=== PATIENT | male | born 1960 | race Hispanic/Latino ===

== ENCOUNTER → 2017-12-19 12:39 | Outpatient (CLI) | payer MEDICAID, SELFPAY ==
--- NOTE | 2017-12-19 12:41 | RAD_ITS ---
STUDY: X-RAY - RIGHT KNEE REASON FOR EXAM: Male, 57 years old. Postop TECHNIQUE: 4 view(s) of the knee. COMPARISON: None. FINDINGS: Total knee arthroplasty. Normal visualized proximal tibia and fibula. Normal proximal tibiofibular articulation. Normal medial femorotibial compartment. Normal lateral femorotibial compartment. Normal patellofemoral articulation. Swelling overlying the knee. RAD/Knee 4 or More Views IMPRESSION: Successful postoperative total knee arthropathy Electronically Signed: Warren Lozano MD at 19:00 EST , Service support ,
== END ==
PROVIDERS: Family Provider Family Medicine; PCP Family Medicine; Visit Provider Orthopaedic Surgery
DX: M25.561 Pain in right knee (principal)
CPT/HCPCS: 73564

== ENCOUNTER 2018-03-03 01:01 | Inpatient (IN) | payer MEDICAID, SELFPAY ==
[2018-03-03] VITALS (16 sets, daily range): BP systolic 92–150; BP diastolic 7–97; PULSE 75–115; RESP 15–20; TEMP 36.7–38.8; O2SAT 93–96; BMI 38.6; BMI 38.5
--- NOTE | 2018-03-03 01:06 | EKG12_ITS ---
Test Reason : PRE-OP KNEE Blood Pressure : / mmHG Vent. Rate : 088 BPM Atrial Rate : 088 BPM P-R Int : 142 ms QRS Dur : 090 ms QT Int : 356 ms P-R-T Axes : 040 012 089 degrees QTc Int : 430 ms Normal sinus rhythm Low voltage QRS (LIMB LEADS) Nonspecific ST and T wave abnormality Abnormal ECG Confirmed by TOMMIE PERALTA ([id number]), photographic editor ERWIN POND ([id number]) on 03/04/2018 9:38:14 AM Referred By: DR MARIO Confirmed By:TOMMIE PERALTA
--- NOTE | 2018-03-03 01:06 | RAD_ITS ---
STUDY: X-RAY CHEST REASON FOR EXAM: Male, 57 years old. Fever. Right knee pain. TECHNIQUE: Single AP portable view of the chest. COMPARISON: None. FINDINGS: The lungs are mildly underexpanded. There is no demonstrated pulmonary infiltrate. There is no demonstrated pleural abnormality. Normal size heart. Normal mediastinum and fr[place]. Normal visualized pulmonary arteries. Normal visualized aortic arch and descending thoracic aorta. There are diffuse degenerative changes of the visualized thoracic spine. Normal visualized ribs, clavicles, and shoulders. There is no demonstrated abnormality of the visualized soft tissue structures of the upper abdomen. RAD/Chest 1 View (Portable) IMPRESSION: No evidence for acute cardiopulmonary pathology. Electronically Signed: Carlos Romano MD at 2:17 EDT , Service support ,
--- NOTE | 2018-03-03 01:09 | ED.DCSUM_ITS ---
- ER Visit Summary Date of Service: 03/03/18 Chief Complaint: Fever, knee pain History of Present Illness: The patient is a 57 M presents to the emergency department with fever and knee pain. Patient had a right total knee replacement done by Dr. Andersen just about a year ago. He is currently in a long term. Over the past 2 days, he has had gradually increasing pain in his right knee. He has had pain with ambulation. Today, he began to have a fever and difficulty bearing weight because of pain. The patient was actually sent to [facility]. There, he had a significant leukocytosis of 22,000, but they were unable to do any intervention for the knee. He was discussed with Dr. Andersen and sent her to the emergency department for further evaluation. Patient does describe some mild pain in the knee. He denies any cough or shortness of breath. Physical Examination: Vital signs reviewed General: Well-nourished, well-developed Head: Normocephalic, atraumatic Eyes: Pupils equal and reactive, extraocular muscles intact Neck, supple, no lymphadenopathy Heart: Regular rate and rhythm Respiratory: No distress, clear bilaterally Abdomen: Soft, nontender, nondistended, no peritoneal signs Back: Nontender Extremities: Small effusion of the right knee with tenderness. Some pain with smaller range of motion. No significant erythema. Skin: Normal color no rash Neuro: Alert and oriented, no focal or lateralizing deficits Test Results: [] Emergency Department Course and Treatment: I did discuss the patient with Dr. Andersen on patient's arrival. He was agreeable with plan for arthrocentesis. The patient was consented for arthrocentesis. I did take great care maintaining sterile technique. The knee was prepped with Shur-Clens multiple times. 2 cc of lidocaine was injected in the subcutaneous tissue. The knee was reprepped. Under sterile technique, 50 cc of fluid was aspirated from the medial aspect of the joint. There was some scant purulence. There was no blood. It was sent to the laboratory for evaluation. There are 30,000 white blood cells. Gram stain is pending. His x-ray does not show focal infiltrate. With the patient' s nonnative knee, significant infusion, evidence of increased leukocytosis, and fever the patient will be admitted. Dr. Andersen did want to wait on IV antibiotics until the morning. The patient is not hypotensive. I do feel that this is a reasonable plan. He is discussed with the hospitalist will be admitted. Treatment Plan: [] Disposition: Admission Impression: 1. Septic arthritis right knee This note was generated with [employer] dictation software. It may contain incorrect words, spelling, and punctuation that were not noted in review of the chart prior to signing ED Disposition - Plan for ED Patient: Chief Complaint: Lower Extremity Injury Referrals: Jan Newman DO [STAFF PHYSICIAN] -
[2018-03-03] MEDS: Acetaminophen 500 MG Tablet 1000 MG PO ×2 (01:19→22:18)
[2018-03-03] MEDS: 0.9% Normal Saline 1,000 ML 1000 ML IV (01:19)
[2018-03-03] MEDS: Morphine 4 MG/ML Syringe IV (01:28)
[2018-03-03] MEDS: Ondansetron 4 MG/2 ML Vial IV (01:28)
[2018-03-03 01:43] LABS: Absolute Lymphocyte Count 1.23 X10^3/ul (0.83-4.51); Absolute Neutrophil Count 19.2 X10^3/uL (2.0-7.7); Basophil# 0.02 X10^3/uL; Basophil% 0.1 % (0-1); Differential Indicated SCAN CRITERIA MET; Hematocrit 42.7 % (40-54); Hemoglobin 14.2 g/dl (13.0-16.5); Lymphocyte # 1.23 X10^3/ul (4.0); Lymphocyte % 5.5 % (19-41); Mean Corp Hgb Conc 33.3 g/gl (32-36); Mean Corpuscular Hgb 27.5 pg (27.0-32.0); Mean Corpuscular Volume 82.8 fL (80-94); Mean Platelet Vol. 11.2 fl (6.2-12.0); Monocyte# 1.93 X10^3/uL; Monocyte% 8.6 % (0-10); Neutrophil # 19.22 X10^3/uL (2.7-7.7); Neutrophil % 85.6 % (47-70); POSITIVE COUNT NO; POSITIVE DIFFERENTIAL YES; POSITIVE MORPHOLOGY NO; Platelet Count 194 K/mm3 (150-450); RBC Distribution Width CV 15.7 % (11.6-14.6); RBC Distribution Width SD 47.4 fl (35.1-43.9); Red Blood Count 5.16 M/mm3 (4.6-6.2); White Blood Count 22.4 K/mm3 (4.4-11.0)
[2018-03-03 01:46] LABS: Pathologist Comment May follow
[2018-03-03 01:54] LABS: AUTO B FLUID DILUENT BKGD CT WBC <0.1 RBC <0.01 (W<.1,R<.01)
[2018-03-03 01:55] LABS: Color / Synovial Fluid Yellow (Pale Yellow); Source / Synovial Fluid RT KNEE; Source- Body Fluid SYNOVIAL; Viscosity / Synovial Fluid Sl. Viscous (HIGH)
[2018-03-03 01:56] LABS: ALB/GLOB Ratio 0.8 RATIO (0.9-2.4); AST(SGOT) 23 U/L (15-37); Alanine Aminotransfer ALT/SGPT 57 U/L (16-61); Albumin, Serum 3.2 g/dL (3.2-5.0); Alkaline Phosphatase 122 U/L (45-117); Anion Gap 8 (5-15); BUN 16 mg/dL (7-18); Calcium,Total 8.6 mg/dL (8.5-10.1); Chloride 99 mmol/L (98-107); EST Glomerular Filtration Rate 81 mL/min (>60); Est Glom Filt Rate - Afr Amer 99 mL/min (>60); Estimated Creatinine Clearance 67.42 ml/min; Glucose 127 mg/dL (74-106); Potassium 3.3 mmol/L (3.5-5.1); Protein, Total 7.2 g/dL (6.4-8.2); Sodium Level 136 mmol/L (136-145)
[2018-03-03 01:56] LABS: Appearance /Synovial Fluid Hazy (CLEAR)
[2018-03-03 02:16] LABS: RBC /Synovial Fluid 0.007 10^6/uL (0); Synovial Fld Mononuclear WBC % 12.2 %; Synovial Fld Polynuclear WBC # 26.027 10^3/ul; Synovial Fld Polynuclear WBC % 87.8 %
[2018-03-03 02:30] LABS: Differential Comment SCANNED
[2018-03-03] MEDS: HYDROmorphone 1 MG/ML Syringe IV (02:47)
--- NOTE | 2018-03-03 03:17 | PCM.HP.STD ---
Problem List (1) Infection of right knee Status: Acute (2) Osteoarthritis Status: Chronic Qualifiers: (3) Status post total left knee replacement Status: Chronic (4) Depression Status: Chronic Qualifiers: (5) Memory deficit Status: Chronic (6) COPD (chronic obstructive pulmonary disease) Status: Chronic Qualifiers: (7) HLD (hyperlipidemia) Status: Chronic Qualifiers: (8) HTN (hypertension) Status: Chronic Qualifiers: (9) History of stroke Status: Chronic History of Present Illness Date of Admission: 03/03/18 Chief Complaint: right knee infection and pain The patient is a 57 year old male patient who has pain in his right knee. He had a knee replacement on that side one year ago. He currently resides in a fdc. It was noted after two days of worsening ambulation that the patient had pain in that knee. He went to [facility] ER but was transferred to our facility as they were unable to perform a cell count on the joint aspirate. White count elevated to 22,000. Per Dr Andersen order the patient is to be admitted and he will be consulted and antibiotics can be decided on in the am. No shortness of breath or cough. Past Medical History Past Medical History (Chronic Problems): Chronic Problems (Last Reviewed 12/19/17 @ 12:40 by Liza Rico) Osteoarthritis (Chronic) Status post total left knee replacement (Chronic) Depression (Chronic) Memory deficit (Chronic) COPD (chronic obstructive pulmonary disease) (Chronic) HLD (hyperlipidemia) (Chronic) HTN (hypertension) (Chronic) History of stroke (Chronic) Allergies No Known Allergies Allergy (Verified 12/19/17 12:40) Home Medications: Ambulatory Orders Medication Instructions Recorded Amlodipine Besylate [Norvasc] 10 mg PO DAILY #30 tab 03/19/17 Hydrochlorothiazide [Hctz] 25 mg PO DAILY #30 tab 03/19/17 Rivastigmine Tartrate [Exelon] 3 mg PO BID #60 cap 03/19/17 busPIRone [Buspar] 5 mg PO BID #60 tab 03/19/17 Atorvastatin Calcium [Lipitor] 40 mg PO DAILY 06/18/17 Duloxetine Hcl [Cymbalta] 120 mg PO DAILY 06/18/17 Lisinopril [Zestril] 2.5 mg PO BID 06/18/17 Surgical History: no surgical history Smoking Status: Former smoker - *Family History Maternal History Items: No pertinent history Review of Systems Constitutional: Denies: Chills, Fever, Weight Change HEENT: Denies: Head Aches, Sinus Congestion, Sinus Drainage Cardiovascular: Denies: Chest Pain, Palpitations Respiratory: Denies: Cough, Shortness of breath at rest, Sputum production Gastrointestinal: Denies: Abdominal Pain, Nausea, Vomiting Genitourinary: Denies: Dysuria Musculoskeletal: Reports: Joint Pain - right knee, Joint Tenderness Skin: Denies: Rash, Wounds Neurological: Reports: Confusion. Denies: Focal weakness, Numbness, Tingling Psychiatric: Denies: Anxiety, Depression, Homicidal Ideations, Suicidal Ideations Hematologic/ Lymphatic: Denies: Easy Bruising, Easy Bleeding VTE Information - Inpt Only VTE Present on Admission: No VTE Mechan Device Prophylaxis: None VTE Pharm Prophylaxis ordered?: Yes Patient Problems: Active and Suspected Problems (Last Reviewed 12/19/17 @ 12:40 by Liza Rico) Infection of right knee (Acute) - Physical Exam General: Alert, Oriented x3, Cooperative HEENT: Atraumatic, Normocephalic Neck: Supple Lungs: Clear to auscultation, Normal air movement Cardiovascular: Regular rate, Normal S1, Normal S2, No murmurs Abdomen: Bowel Sounds Present, Soft, Non Tender Extremities: No edema, Capillary Refill Less than 3 Seconds, Tenderness - right knee Skin: No rashes, No breakdown Musculoskeletal: No Tenderness to Palpation of Joints or Extremities Neurological: Neuro grossly intact Psych/Mental Status: Normal Affect, Appropriate Vital Signs Temp Pulse Resp BP Pulse Ox 99.4 F H 85 17 124/7 H 94 03/03/18 02:53 03/03/18 02:53 03/03/18 02:53 03/03/18 02:53 03/03/18 02:53 Oxygen Flow Rate (L/min) 2 Oxygen Delivery Method Nasal Cannula Weight: 224 lb 13.944 oz Body Mass Index (BMI) 38.6 Microbiology Past 72 Hours 03/03/18 01:40 Gram Stain - Preliminary Fluid - Synovial (joint) Laboratory Tests Past 24 Hrs 03/03/18 03/03/18 03/03/18 01:25 01:25 01:40 WBC 22.4 H RBC 5.16 Hgb 14.2 Hct 42.7 MCV 82.8 MCH 27.5 MCHC 33.3 RDW 15.7 H RDW Differential 47.4 H Plt Count 194 MPV 11.2 Immature Gran % (Auto) 0.200 Neut % (Auto) 85.6 H Lymph % (Auto) 5.5 L [place] % (Auto) 8.6 Eos % (Auto) 0.0 Baso % (Auto) 0.1 Absolute Neuts (auto) 19.2 H Absolute Lymphs (auto) 1.23 Total Counted Not Reportable Differential Comment SCANNED Diff Path Review March Sodium 136 Potassium 3.3 L Chloride 99 Carbon Dioxide 29.0 Anion Gap 8 BUN 16 Creatinine 1.00 Estim Creat Clear Calc 67.42 Est GFR (MDRD) Af Amer 99 Est GFR (MDRD) Non-Af 81 BUN/Creatinine Ratio 16.0 Glucose 127 H Lactic Acid Calcium 8.6 Total Bilirubin 0.50 AST 23 ALT 57 Alkaline Phosphatase 122 H Total Protein 7.2 Albumin 3.2 Globulin 4.0 Albumin/Globulin Ratio 0.8 L Fluid Crystals Pending Fluid Crystal Source Pending Synovial Source Pending Synovial Color Pending Synovial Appearance Pending Synovial WBC 30.2760 H Synovial RBC 0.007 H Synovial Tot Cell Ct 30.3040 H Synov Polynuclear WBCs 26.027 Synovial Polynuclear % 87.8 Synovial Mononuclear % 12.2 [address]ovial [address] Comment Pending 03/03/18 02:15 WBC RBC Hgb Hct MCV MCH MCHC RDW RDW Differential Plt Count MPV Immature Gran % (Auto) Neut % (Auto) Lymph % (Auto) [place] % (Auto) Eos % (Auto) Baso % (Auto) Absolute Neuts (auto) Absolute Lymphs (auto) Total Counted Differential Comment Diff Path Review Sodium Potassium Chloride Carbon Dioxide Anion Gap BUN Creatinine Estim Creat Clear Calc Est GFR (MDRD) Af Amer Est GFR (MDRD) Non-Af BUN/Creatinine Ratio Glucose Lactic Acid 1.0 Calcium Total Bilirubin AST ALT Alkaline Phosphatase Total Protein Albumin Globulin Albumin/Globulin Ratio Fluid Crystals Fluid Crystal Source Synovial Source Synovial Color Synovial Appearance Synovial WBC Synovial RBC Synovial Tot Cell Ct Synov Polynuclear WBCs Synovial Polynuclear % Synovial Mononuclear % Synovial Path Comment Assessment/Plan Active and Suspected Problems (Last Reviewed 12/19/17 @ 12:40 by Liza Rico) Infection of right knee (Acute) Chronic Problems (Last Reviewed 12/19/17 @ 12:40 by Liza Rico) Osteoarthritis (Chronic) Depression (Chronic) Memory deficit (Chronic) COPD (chronic obstructive pulmonary disease) (Chronic) HLD (hyperlipidemia) (Chronic) HTN (hypertension) (Chronic) History of stroke (Chronic) Plan - admit to medical surgical floor - consult Dr. Andersen who will initiate antibiotic therapy - continue routine medications - LMWH for DVT prophylaxis - morphine 2mg IV q 2 hrs prn pain Code Visit Inpatient E&M: 12578 Init Hosp L2
[2018-03-03 03:25] LABS: Lymph 1 %; Monocyte /Synovial Fluid 7 %; Neutrophil 92 % (0-25)
[2018-03-03 03:27] LABS: Body Fluid QC Type(s) BF1Q,BF2Q
[2018-03-03] MEDS: Morphine 4 MG/ML Syringe 2 MG IV ×4 (04:55→15:00)
[2018-03-03] MEDS: 0.9% Normal Saline 1,000 ML 125 ML IV (06:33)
[2018-03-03 07:32] LABS: Erythrocyte Sedimentation Rate 37 mm/hr (0-20)
--- NOTE | 2018-03-03 09:25 | CASEMGMT ---
Addendum entered by Callie Agrawal 03/03/18 11:30: ELMER received call from Frances at [facility] stating that pt will need pre-cert to return to [facility] under skilled. ELMER will fax updated clinicals to Frances when available. Pt is scheduled to have surgery today. Original Note: Social Work Note SW met with pt as pt is from [facility]. Pt states that his plan is to return there at discharge. ELMER placed a call to [facility] and spoke with Ariela who states admissions is still in morning meeting. ELMER left message for Ariela stating that pt is in hospital and his plan is to return and to let this worker know if pt will need pre-cert to return to [facility]. ELMER will wait for call back from [facility]. ELMER will continue to follow to assist with discharge planning. Plan: Return to [facility] at discharge Callie Agrawal DISTRICT COMMERCIAL SUPERINTENDENT, ASSISTIVE TECHNOLOGY TRAINER
--- NOTE | 2018-03-03 09:26 | PCM.PN.HOSP ---
Patient Problems: Active and Suspected Problems (Last Reviewed 12/19/17 @ 12:40 by Liza Rico) Infection of right knee (Acute) Subjective: still with pain in right knee. had a replacement several years ago on that side. Vitals/I&O's: Vital Signs Temp Pulse Resp BP Pulse Ox 36.7 C 75 20 H 109/68 96 03/03/18 08:04 03/03/18 08:04 03/03/18 08:04 03/03/18 08:04 03/03/18 08:04 Oxygen Flow Rate (L/min) 3 Oxygen Delivery Method Nasal Cannula Weight: 101.7 kg Body Mass Index (BMI) 38.5 Intake and Output for Last 24 Hours 03/01/18 03/02/18 03/03/18 23:59 23:59 23:59 Intake Total 100 / 100 Balance 100 / 100 General: Alert, Cooperative, No apparent distress HEENT: Atraumatic, Normocephalic Neck: No Nodes, Thyroid Normal Size and Texture Lungs: Clear to auscultation, Normal air movement, No rhonchi, No wheeze Cardiovascular: Regular rate, Regular Rhythm, Normal S1, Normal S2, No murmurs Abdomen: Bowel Sounds Present, Soft, Non Tender, Non-Distended, No Hepato-splenomegaly Extremities: - - right knee effusion with slight warmth. TTP w minor palpation. Skin: No rashes, No breakdown Psych/Mental Status: Normal Affect, Appropriate Current Medications Amlodipine Besylate (Norvasc) 10 mg PO DAILY [facility] Atorvastatin Calcium (Lipitor) 40 mg PO QHS ON LICENSE OF [facility] Buspirone HCl (Buspar) 5 mg PO BID [facility] Duloxetine HCl (Cymbalta) 120 mg PO DAILY [facility] Enoxaparin Sodium (Lovenox) 40 mg SC DAILY@1000 ON LICENSE OF [facility] Last Admin: 03/03/18 07:59 Dose: Not Given Gabapentin (Neurontin) 100 mg PO DAILYCM ON LICENSE OF [facility] Lisinopril (Zestril) 2.5 mg PO BID [facility] Magnesium Hydroxide (Milk Of Magnesia) 30 ml PO DAILY PRN PRN PRN Reason: Constipation Morphine Sulfate () 2 mg IV Q2H PRN PRN PRN Reason: SEVERE PAIN (6-10/10) Last Admin: 03/03/18 04:55 Dose: 2 mg Rivastigmine Tartrate (Exelon) 3 mg PO BID [facility] Sodium Chloride () 5 - 30 ml IV UD PRN PRN Reason: SALINE FLUSH Medical Necessity - Tobacco Use Smoking Status: Former smoker Assessment/Plan Active and Suspected Problems (Last Reviewed 12/19/17 @ 12:40 by Liza Rico) Infection of right knee (Acute) 1. right septic knee Gram stain unremarkable. Culture pending. To OR today with Dr. Cleary. Hold on abx per ortho until cultures results come back consult ID for long-term recs 2. hypokalemia replace K follow up magnesium level 3. DVT proph: LMWH (on hold for surgery today) Code Visit Procedures: Other Procedure - See Report - non-billable rounding.
--- NOTE | 2018-03-03 09:35 | PN_ITS ---
Patient Problems: Active and Suspected Problems (Last Reviewed 12/19/17 @ 12:40 by Liza Rico) Infection of right knee (Acute) Subjective: still with pain in right knee. had a replacement several years ago on that side. Vitals/I&O's: Vital Signs Temp Pulse Resp BP Pulse Ox 36.7 C 75 20 H 109/68 96 03/03/18 08:04 03/03/18 08:04 03/03/18 08:04 03/03/18 08:04 03/03/18 08:04 Oxygen Flow Rate (L/min) 3 Oxygen Delivery Method Nasal Cannula Weight: 101.7 kg Body Mass Index (BMI) 38.5 Intake and Output for Last 24 Hours 03/01/18 03/02/18 03/03/18 23:59 23:59 23:59 Intake Total 100 / 100 Balance 100 / 100 General: Alert, Cooperative, No apparent distress HEENT: Atraumatic, Normocephalic Neck: No Nodes, Thyroid Normal Size and Texture Lungs: Clear to auscultation, Normal air movement, No rhonchi, No wheeze Cardiovascular: Regular rate, Regular Rhythm, Normal S1, Normal S2, No murmurs Abdomen: Bowel Sounds Present, Soft, Non Tender, Non-Distended, No Hepato- splenomegaly Extremities: - - right knee effusion with slight warmth. TTP w minor palpation. Skin: No rashes, No breakdown Psych/Mental Status: Normal Affect, Appropriate Current Medications Amlodipine Besylate (Norvasc) 10 mg PO DAILY [facility] Atorvastatin Calcium (Lipitor) 40 mg PO QHS [facility] Buspirone HCl (Buspar) 5 mg PO BID [facility] Duloxetine HCl (Cymbalta) 120 mg PO DAILY [facility] Enoxaparin Sodium (Lovenox) 40 mg SC DAILY@1000 [facility] Last Admin: 03/03/18 07:59 Dose: Not Given Gabapentin (Neurontin) 100 mg PO DAILYCM [facility] Lisinopril (Zestril) 2.5 mg PO BID [facility] Magnesium Hydroxide (Milk Of Magnesia) 30 ml PO DAILY PRN PRN PRN Reason: Constipation Morphine Sulfate () 2 mg IV Q2H PRN PRN PRN Reason: SEVERE PAIN (6-10/10) Last Admin: 03/03/18 04:55 Dose: 2 mg Rivastigmine Tartrate (Exelon) 3 mg PO BID [facility] Sodium Chloride () 5 - 30 ml IV UD PRN PRN Reason: SALINE FLUSH Medical Necessity - Tobacco Use Smoking Status: Former smoker Assessment/Plan Active and Suspected Problems (Last Reviewed 12/19/17 @ 12:40 by Liza Rico) Infection of right knee (Acute) 1. right septic knee * Gram stain unremarkable. Culture pending. * To OR today with Dr. Cleary. Hold on abx per ortho until cultures results come back * consult ID for long-term recs 2. hypokalemia * replace K * follow up magnesium level 3. DVT proph: LMWH (on hold for surgery today) Code Visit Procedures: Other Procedure - See Report - non-billable rounding.
--- NOTE | 2018-03-03 10:51 | PCM.HP.ID ---
Problem List (1) Infection of right knee Status: Acute Reason for Consult: PJI Consulted by: Dr. Pratt History of Present Illness: The patient is a 57 year old M with h/o R knee replacement 06/2017 who presented to [facility] ED yesterday from [facility] with 2 day h/o moderate R knee pain, swelling, warmth. Mild associated fever. No recent trauma to the knee, no recent abx. After surgery, knee healed well with no complications. Pain worse now with movement. In [facility], no cxs sent. Transferred here and aspiration done. Plan is for surgery today, abx have been held. Full ROS performed and neg except as noted above. - Medical History Past Medical History (Chronic Problems): Chronic Problems (Last Reviewed 12/19/17 @ 12:40 by Liza Rico) Osteoarthritis (Chronic) Status post total left knee replacement (Chronic) Depression (Chronic) Memory deficit (Chronic) COPD (chronic obstructive pulmonary disease) (Chronic) HLD (hyperlipidemia) (Chronic) HTN (hypertension) (Chronic) History of stroke (Chronic) Allergies/Adverse Reactions: Allergies No Known Allergies Allergy (Verified 12/19/17 12:40) Home Medications: Ambulatory Orders Medication Instructions Recorded Amlodipine Besylate [Norvasc] 10 mg PO DAILY #30 tab 03/19/17 Atorvastatin Calcium [Lipitor] 40 mg PO DAILY 06/18/17 Duloxetine Hcl [Cymbalta] 120 mg PO DAILY 06/18/17 Lisinopril [Zestril] 5 mg PO BID 06/18/17 Diazepam [Valium] 5 mg PO DAILY 03/03/18 Fish Oil/Dha/Epa [Fish Oil 1,200 1 each PO DAILY 03/03/18 mg Fish Oil] Furosemide [Lasix] 60 mg PO DAILY 03/03/18 Gabapentin [Neurontin] 100 mg PO BID 03/03/18 Oxycodone [Oxyir] 10 mg PO BID 03/03/18 Rivastigmine Tartrate 3 mg PO BID 03/03/18 [Rivastigmine] Senna [Senokot] 8.6 mg PO QHS 03/03/18 Vitamin B Complex 1 capsule PO DAILY 03/03/18 busPIRone [Buspar] 2.5 mg PO BID 03/03/18 - Social History SMOKING STATUS:: Former smoker Vital Signs Temp Pulse Resp BP Pulse Ox 98.9 F 83 20 H 113/70 94 03/03/18 10:17 03/03/18 10:17 03/03/18 10:17 03/03/18 10:17 03/03/18 10:17 Oxygen Flow Rate (L/min) 2 Oxygen Delivery Method Nasal Cannula Weight: 101.7 kg Body Mass Index (BMI) 38.5 - Other Studies Radiology: [] reviewed Other Studies: [] Route of nutrition/ use of supplements: [] Nutritional Intake: [] IV Site: [] Guidry Catheter: [] - Physical Exam General: Alert, Oriented x3, Cooperative, No apparent distress HEENT: Atraumatic, PERRLA, EOMI Neck: Supple, No Nodes Lungs: Clear to auscultation, Normal air movement Cardiovascular: Regular rate, Regular Rhythm, No murmurs Abdomen: Bowel Sounds Present, Soft, Non Tender, Non-Distended Extremities: No cyanosis Skin: No rashes IV Site: Peripheral, without redness Musculoskeletal: - - R knee pain, swelling, redness, and warmth Neurological: Cranial nerves II-XII grossly intact - Assessment/Plan Antibiotics: [] Assessment/Plan: [] Active and Suspected Problems (Last Reviewed 12/19/17 @ 12:40 by Liza Rico) Infection of right knee (Acute) Sepsis (fever, leukocytosis) due to R knee PJI - knee aspirate with 30k wbc with 92% neutrophils. OR planned for today. Abx being held. Bcx pending. No organisms seen on gram stain. Once he goes to OR, plan will be for empiric iv vanc and ceftriaxone. Thank you, will follow, d/w Dr. Pratt.
--- NOTE | 2018-03-03 11:13 | PCM.CONS.B ---
- Consult Date of Consult: 03/03/18 - Reason for Consult 57-year-old male well-known to me having had undergone bilateral total knee arthroplasties within the last year. Patient reports 48 hours ago to start to develop right knee swelling and increasing pain. The right knee had been done roughly 1 year ago at this point time. Patient says prior to the last 48 hours he had been doing very well have been pleased with his overall outcomes and was doing well. Patient denies any other fevers chills nausea vomiting chest pain or shortness of breath at this point. He denied any other associated urinary issues denied any upper respiratory or abdominal issues at this point. Patient had undergone a needle aspiration that showed him to have a 30,000 white count and also showed on his blood smear to have a 22,000 white count with a shift. Patient had low-grade fevers and was admitted by the hospitalist team. I was called last p.m. by the [place] emergency room about their inability to manage the patient and he was transferred here. I subsequently contacted Dr. Cleary with [facility] about the patient and the probable need for poly-exchange versus revision arthroplasty. No other issues at this point time. Patient has been maintained on n.p.o. status and we had not started any antibiotic coverage at this point to get deep cultures within the wound. This was per the recommendation of Dr. Cleary. Objective: Patient is otherwise alert and oriented ?3 in no acute distress. Appropriate eye contact and affect. Remains otherwise intact from L1-S1 distributions. He has +2 pulses. His left knee examination shows no signs of effusion he has 0-120? of knee flexion remains ligamentously stable with no calf pain negative Homans and no adenopathy. His right knee examination shows swelling to the knee no anaya erythema could be appreciated. No obvious popliteal masses or calf pain. His range of motion is guarded secondary to knee pain. He can perform straight leg raise however but is painful. He has no groin adenopathy or streaking erythema. Lab values reviewed-patient shows 22,000 white count on his blood and shows a 30,000+ knee aspirate white blood cells with increased PMNs. Patient currently has a negative Gram stain for his aspirate and we are waiting for culture formation at this time. Assessment: Right knee periprosthetic infection. Plan: At this point time I will consult Dr. Cleary was that with the [facility] in order to evaluate for incision and drainage poly-exchange and probable antibiotic spacer. I will defer to his expertise in terms of anaya explantation of implants to perform either single or two-stage revision procedure. Infectious disease has been consulted this time. We are holding off on antibiotic coverage until the intraoperative cultures are taken. Patient is n.p.o. I will place to consent to the chart with the understanding that Dr. Cleary will be the lead surgeon. If there is any major issues please contact me. I will continue to follow secondarily. I discussed with the patient the surgical procedure. Patient understands risks and benefits to include damage to nerves muscles arteries and veins development of DVT PE infection or . Patient is aware that he will need probable two-stage procedure. He is aware that he will need a PICC line. Patient is aware of his postoperative plan to include working on aggressive range of motion. Patient is aware that with infection as he was consulted in the preoperative state prior to his primary procedure that there is the risk of amputation as well. For now will proceed with surgical intervention per the treatment plan of Dr. Cleary any major issues please contact me.
--- NOTE | 2018-03-03 11:17 | CON.PCM_ITS ---
- Consult Date of Consult: 03/03/18 - Reason for Consult 57-year-old male well-known to me having had undergone bilateral total knee arthroplasties within the last year. Patient reports 48 hours ago to start to develop right knee swelling and increasing pain. The right knee had been done roughly 1 year ago at this point time. Patient says prior to the last 48 hours he had been doing very well have been pleased with his overall outcomes and was doing well. Patient denies any other fevers chills nausea vomiting chest pain or shortness of breath at this point. He denied any other associated urinary issues denied any upper respiratory or abdominal issues at this point. Patient had undergone a needle aspiration that showed him to have a 30,000 white count and also showed on his blood smear to have a 22,000 white count with a shift. Patient had low-grade fevers and was admitted by the hospitalist team. I was called last p.m. by the [facility] emergency room about their inability to manage the patient and he was transferred here. I subsequently contacted Dr. Cleary with [facility] about the patient and the probable need for poly -exchange versus revision arthroplasty. No other issues at this point time. Patient has been maintained on n.p.o. status and we had not started any antibiotic coverage at this point to get deep cultures within the wound. This was per the recommendation of Dr. Cleary. Objective: Patient is otherwise alert and oriented ?3 in no acute distress. Appropriate eye contact and affect. Remains otherwise intact from L1-S1 distributions. He has +2 pulses. His left knee examination shows no signs of effusion he has 0-120? of knee flexion remains ligamentously stable with no calf pain negative Homans and no adenopathy. His right knee examination shows swelling to the knee no anaya erythema could be appreciated. No obvious popliteal masses or calf pain. His range of motion is guarded secondary to knee pain. He can perform straight leg raise however but is painful. He has no groin adenopathy or streaking erythema. Lab values reviewed-patient shows 22,000 white count on his blood and shows a 30 ,000+ knee aspirate white blood cells with increased PMNs. Patient currently has a negative Gram stain for his aspirate and we are waiting for culture formation at this time. Assessment: Right knee periprosthetic infection. Plan: At this point time I will consult Dr. Cleary was that with the [facility] in order to evaluate for incision and drainage poly-exchange and probable antibiotic spacer. I will defer to his expertise in terms of anaya explantation of implants to perform either single or two-stage revision procedure. Infectious disease has been consulted this time. We are holding off on antibiotic coverage until the intraoperative cultures are taken. Patient is n.p.o. I will place to consent to the chart with the understanding that Dr. Cleary will be the lead surgeon. If there is any major issues please contact me. I will continue to follow secondarily. I discussed with the patient the surgical procedure. Patient understands risks and benefits to include damage to nerves muscles arteries and veins development of DVT PE infection or . Patient is aware that he will need probable two- stage procedure. He is aware that he will need a PICC line. Patient is aware of his postoperative plan to include working on aggressive range of motion. Patient is aware that with infection as he was consulted in the preoperative state prior to his primary procedure that there is the risk of amputation as well. For now will proceed with surgical intervention per the treatment plan of Dr. Cleary any major issues please contact me.
[2018-03-03 14:29] LABS: Pathologist Review Reviewed
[2018-03-03 14:32] LABS: Pathologist Review Reviewed
[2018-03-03 16:19] LABS: Bacteria 0 SEEN /hpf (None Seen); Mucous, Urine 0 SEEN /hpf (<or=2+); Red Blood Cells-Urine 0 SEEN /hpf (0-5); Squamous Epithelial Cells - UA 0 SEEN /hpf (0-5); White Blood Cells 0 SEEN /hpf (0-5)
[2018-03-03 16:22] LABS: Color, Urine Yellow (Yellow); Glucose, Dipstick Normal (Normal); Ketone-Dipstick 5 mg/dl (Negative); Leukocyte Esterase-Dipstick Negative /ul (Negative); Nitrite-Dipstick Negative (Negative); Occult Blood-Urine Negative /ul (Negative); Protein-Dipstick 15 mg/dl (Negative); Urine Bilirubin Dipstick Negative (Negative); Urine Clarity Clear (Clear); Urine Urobilinogen 4 mg/dl (Normal)
--- NOTE | 2018-03-03 17:10 | PCM.CONS.GEN ---
Reason for Consult Date of Consultation: 03/03/18 Reason for Consultation: acute R TKA infection History of Present Illness: The patient is a 57 year old M history of CVAs with resultant dementia. Patient resides in a group home. He had bilateral total knee replacements done in a staged fashion 1 year ago. Most recent follow-up was in December 2017 seem to be doing well at that time. Patient presented to an outside emergency department with 48 hours of pain and swelling in his right knee with erythema. He was reported to have an elevated white blood cell count. He was transferred to the [facility] because his primary surgeon was at this facility. Patient has not been febrile until this evening prior to my meeting him. He does have some noted fevers over the last couple hours. He has pain and difficulty with range of motion severe swelling of the right knee. Left knee does not seem to have significant problems. He did not have significant problems after surgery. Aspiration was performed showing 30,000 white cells 88% neutrophils. ESR and CRP are elevated CRP is 189 ESR is 37. Fluid appearance was hazy consistent with purulence. Patient currently resides in a group home secondary to dementia from his CVAs. Patient needs 4 out of 6 MSIS criteria for infection. Past Medical History Past Medical History (Chronic Problems): Chronic Problems (Last Reviewed 12/19/17 @ 12:40 by Liza Rico) Osteoarthritis (Chronic) Status post total left knee replacement (Chronic) Depression (Chronic) Memory deficit (Chronic) COPD (chronic obstructive pulmonary disease) (Chronic) HLD (hyperlipidemia) (Chronic) HTN (hypertension) (Chronic) History of stroke (Chronic) Allergies No Known Allergies Allergy (Verified 12/19/17 12:40) Home Medications: Ambulatory Orders Medication Instructions Recorded Amlodipine Besylate [Norvasc] 10 mg PO DAILY #30 tab 03/19/17 Atorvastatin Calcium [Lipitor] 40 mg PO DAILY 06/18/17 Duloxetine Hcl [Cymbalta] 120 mg PO DAILY 06/18/17 Lisinopril [Zestril] 5 mg PO BID 06/18/17 Diazepam [Valium] 5 mg PO DAILY 03/03/18 Fish Oil/Dha/Epa [Fish Oil 1,200 1 each PO DAILY 03/03/18 mg Fish Oil] Furosemide [Lasix] 60 mg PO DAILY 03/03/18 Gabapentin [Neurontin] 100 mg PO BID 03/03/18 Oxycodone [Oxyir] 10 mg PO BID 03/03/18 Rivastigmine Tartrate 3 mg PO BID 03/03/18 [Rivastigmine] Senna [Senokot] 8.6 mg PO QHS 03/03/18 Vitamin B Complex 1 capsule PO DAILY 03/03/18 busPIRone [Buspar] 2.5 mg PO BID 03/03/18 Surgical History: no surgical history Smoking Status: Former smoker Tobacco Use: Non-smoker Alcohol: None Drugs: None - *Family History Maternal History Items: No pertinent history Review of Systems Constitutional: Reports: Fever. Denies: Anorexia, Chills HEENT: Denies: Head Aches, Sinus Congestion, Sinus Drainage Cardiovascular: Denies: Chest Pain, Palpitations Respiratory: Denies: Cough, Shortness of breath at rest, Sputum production Gastrointestinal: Denies: Abdominal Pain, Nausea, Vomiting Genitourinary: Denies: Dysuria Musculoskeletal: Reports: Joint Pain, Joint Tenderness Skin: Denies: Rash, Wounds Neurological: Denies: Numbness, Tingling, Focal weakness Psychiatric: Denies: Anxiety, Depression, Homicidal Ideations, Suicidal Ideations Hematologic/ Lymphatic: Denies: Easy Bruising, Easy Bleeding Patient Problems: Active and Suspected Problems (Last Reviewed 12/19/17 @ 12:40 by Liza Rico) Infection of right knee (Acute) - Physical Exam General: Alert, Cooperative HEENT: Atraumatic Extremities: - - Right lower extremity: Massive effusion of the right knee pain with range of motion. Tenderness palpation around the knee joint. Neurovascular intact distally. Erythema over the knee joint. Incision is clean dry and intact. Vital Signs Temp Pulse Resp BP Pulse Ox 101.1 F H 87 20 H 134/85 H 94 03/03/18 16:00 03/03/18 16:00 03/03/18 16:00 03/03/18 16:00 03/03/18 16:00 Oxygen Flow Rate (L/min) 2 Oxygen Delivery Method Nasal Cannula Weight: 224 lb 3.362 oz Body Mass Index (BMI) 38.5 Intake and Output for Last 24 Hours 03/01/18 03/02/18 03/03/18 23:59 23:59 23:59 Intake Total 1556 / 1556 Output Total 400 / 400 Balance 1156 / 1156 Laboratory Tests Past 24 Hrs 03/03/18 16:00 Urine Color Yellow Urine Clarity Clear Urine pH 6.0 Ur Specific [place] 1.020 Urine Protein 15 H Urine Glucose (UA) Normal Urine Ketones 5 H Urine Occult Blood Negative Urine Nitrite Negative Urine Bilirubin Negative Urine Urobilinogen 4 H Ur Leukocyte Esterase Negative Urine RBC 0 SEEN Urine WBC 0 SEEN Ur Squamous Epith Cells 0 SEEN Urine Bacteria 0 SEEN Urine Mucus 0 SEEN Assessment/Plan Active and Suspected Problems (Last Reviewed 12/19/17 @ 12:40 by Liza Rico) Infection of right knee (Acute) Patient meets 4 out of 6 MSIS criteria for total knee periprosthetic joint infection. We will proceed to the operating room for irrigation debridement polyethylene exchange for acute infection. Did discuss risks and benefits of the procedure including but not limited to blood loss, DVTs, PEs, neurovascular damage, general risk of anesthesia including loss of life. We discussed failure rates of polyethylene exchange however, at this time based on patient's overall health I think he would benefit from avoiding a two-stage revision if we can successfully perform a polyethylene exchange and clear this infection considering the acuity of the symptoms in the last 48-72 hours. Antibiotics have been held until cultures can be obtained. Aspiration cultures currently are without growth. Per infectious disease we will start the patient on vancomycin and ceftriaxone weightbase dosage postoperatively. We will also place a Comycin in the wound and closure. Patient is agreeable to the plan and would like to proceed with the polyethylene exchange. He is able to sign informed consent. His POA is also at bedside and able to sign informed consent. Patient is n.p.o. at this time. [facility] Office:
[2018-03-03] MEDS: Ceftriaxone 1 GM/50 mL Premix x1 IV (18:20)
[2018-03-03] MEDS: Lactated Ringers 1,000 ML 999 ML IV (18:50)
--- NOTE | 2018-03-03 18:57 | OP.PCM_ITS ---
Report of Operation Date of Procedure: 03/03/18 Pre-Operative Diagnosis: Acute right total knee infection Post-Operative Diagnosis: Acute right total knee infection Surgery/Procedure Performed:: Irrigation debridement right total knee replacement with complete synovectomy polyethylene exchange 1 component revision right total knee Description of Surgical Findings:: Complete synovectomy, purulent synovial fluid was encountered farm reporter: Toya Montanez Type of Anesthesia:: General Anesthesiologist: Karmen Carrasco Special Medications: 1.5 g vancomycin and 1 g ceftriaxone after cultures were taken, 1 g vancomycin powder and wound at completion of case Specimen's removed: 3 separate specimens were sent to microbiology Estimated Blood Loss (mL): 25 Fluids Replaced: 1 L crystalloid Description of Procedure: 57-year-old male who had 4 out of 6 criteria for MSIS infection criteria. Symptoms were just over 72 hours. Risks and benefits of polyethylene exchange were discussed with the patient as mentioned in the consultation note as well as risks of failure. Patient demonstrated understanding was able to sign informed consent. Procedure: On the date of the procedure patient's right leg was marked in the preoperative area. He was examined and noted to be significantly swollen. He was brought back to the operating room where he was made comfortable and transferred to the table. He was placed in the supine position and all bony prominences were identified well-padded. Anesthesia assumed control the C-spine airway and administered anesthetic. They remain to control the C-spine airway throughout the remainder the procedure. Tourniquet was placed on the right upper thigh. Right lower extremity was then prepped in a sterile fashion while the surgeon scrubbed. Upon reentering the room the right lower extremity was draped in a standard orthopedic fashion and incision was marked out using the old incision and extending approximately distally 2 cm. The leg was elevated while timeout was called. Everyone agreed upon the side, the site, the procedure be performed, patient identity and antibiotics given. Knee was flexed and tourniquet was placed up to 250 mmHg. Incision taken at the skin subcu tissue fat down to fascia. Once we identified the extensor mechanism we elevated flaps medially and laterally. Once these flaps are adequately elevated a standard medial parapatellar arthrotomy was made. Murky synovial fluid consistent with purulent infection was encountered. The knee was evacuated of this fluid. At this time we encountered a very thick synovium. A complete synovectomy was performed first removing synovium from over the PCL. Then we removed synovium from the medial gutter than the suprapatellar pouch and the lateral gutter. Synovium from the suprapatellar pouch and PCL were sent for culture. Knee was then flexed up and polyethylene was removed and posterior knee was debrided. Tibial membrane was sent for culture as well. After the knee was adequately debrided and complete synovectomy had been performed a chlorhexidine scrub brush was used to scrub the implants and wash the wound. Once this was done 6 L of normal saline were irrigated throughout the wound on low-pressure lavage. After complete irrigation, synovectomy and debridement myself and my assistant plant controller changed gloves and hoods and new drapes were placed. Sterile instruments were used at this time and the final polyethylene was placed. After the final polyethylene was placed the knee had good patella tracking and was well- balanced. At this time the wound was once again irrigated with normal saline. Tourniquet was let down and hemostasis was obtained. 1 g of vancomycin powder was placed in the wound. Arthrotomy was closed using #1 Vicryl skin was closed using 2-0 Vicryl and skin harpal. Sterile silver dressing was placed, compressive dressing was placed. Patient was awakened by anesthesia and transferred to the PACU in stable condition. Postop plan patient will be on antibiotics per infectious disease. We will follow cultures. He will follow-up in my office in 2 weeks for staple removal and long-term follow-up. He can be weight-bear as tolerated activity as tolerated. He is currently on Lovenox for DVT prophylaxis he can resume this tomorrow. Grafts/Implants Used: Hiram triathlon X3 size 4 9 mm CS polyethylene - Complications None - Admit VTE Documentation VTE Present on Admission: No VTE Mechan Device Prophylaxis: SCD's, Thigh High RIC Hose VTE Pharm Prophylaxis ordered?: Yes
[2018-03-03] MEDS: Ketorolac 15 MG/ML Vial IV (19:53)
--- NOTE | 2018-03-03 20:34 | PCM.RX.CS ---
Consult Pharmacy has been consulted to manage selected antiobiotic: Vancomycin Type of Consult: New start Suspected Infection: Skin/Soft tissue Prior Doses of Antibiotics Received/Current Regimen: 1500mg IV in O.R. at 18:15 Labs: Sodium 136 mmol/L (136-145) 03/03/18 01:25 Potassium 3.3 mmol/L (3.5-5.1) L 03/03/18 01:25 Chloride 99 mmol/L (98-107) 03/03/18 01:25 Carbon Dioxide 29.0 mmol/L (21.0-32.0) 03/03/18 01:25 Anion Gap 8 (5-15) 03/03/18 01:25 BUN 16 mg/dL (7-18) 03/03/18 01:25 Creatinine 1.00 mg/dL (0.70-1.30) 03/03/18 01:25 Est GFR (MDRD) Af Amer 99 mL/min (>60) 03/03/18 01:25 Est GFR (MDRD) Non-Af 81 mL/min (>60) 03/03/18 01:25 BUN/Creatinine Ratio 16.0 RATIO (10-20) 03/03/18 01:25 Glucose 127 mg/dL (74-106) H 03/03/18 01:25 Weight used for dosin.7 kg Estimated Creatinine Clearance: 67 Goal Trough: 10-15 mcg/mL Pharmacy Plan for Drug Dosinmg x1 given in O.R., then 1000mg IV q12h. Predicted trough is 13.6 and will be obtained before the 4th dose. Pharmacy Service will continue to monitor and adjust dosing as required. Follow-Up Labs: Trough Vancomycin Labs to be done on [date and time ordered]: 03/05/18 before the 4th dose at 06:00
[2018-03-03] MEDS: Rivastigmine Tartrate 1.5 MG Capsule 3 MG PO (22:16)
[2018-03-03] MEDS: Atorvastatin Calcium 40 MG Tablet PO (22:16)
[2018-03-03] MEDS: Senna/Docusate Sodium 1 Tablet 2 TABLET PO (22:18)
[2018-03-03] MEDS: busPIRone 5 MG Tablet PO (22:19)
[2018-03-03] MEDS: Lisinopril 2.5 MG Tablet PO (22:24)
[2018-03-04] VITALS (7 sets, daily range): BP systolic 112–136; BP diastolic 66–85; PULSE 80–97; RESP 16–18; TEMP 36.7–37.6; O2SAT 92–98
[2018-03-04] MEDS: Lactated Ringers 1,000 ML 125 ML IV (03:23)
[2018-03-04] MEDS: oxyCODONE 5 MG Tablet PO ×4 (04:31→20:37)
[2018-03-04] MEDS: Morphine 4 MG/ML Syringe 2 MG IV (05:45)
[2018-03-04] MEDS: Acetaminophen 500 MG Tablet 1000 MG PO ×3 (05:45→22:02)
[2018-03-04 06:22] LABS: Anion Gap 7 (5-15); BUN 12 mg/dL (7-18); BUN/Creat Ratio 15.6 RATIO (10-20); Calcium,Total 8.1 mg/dL (8.5-10.1); Chloride 106 mmol/L (98-107); Creatinine, Serum 0.77 mg/dL (0.70-1.30); EST Glomerular Filtration Rate 110 mL/min (>60); Est Glom Filt Rate - Afr Amer 134 mL/min (>60); Estimated Creatinine Clearance 87.56 ml/min; Glucose 137 mg/dL (74-106); Magnesium 1.8 mg/dL (1.6-2.6); Potassium 3.7 mmol/L (3.5-5.1); Sodium Level 140 mmol/L (136-145)
[2018-03-04 06:26] LABS: Absolute Lymphocyte Count 1.33 X10^3/ul (0.83-4.51); Absolute Neutrophil Count 9.2 X10^3/uL (2.0-7.7); Basophil# 0.02 X10^3/uL; Basophil% 0.2 % (0-1); Eosinophil# 0.05 X10^3/uL; Eosinophils% 0.4 % (0-5); Hemoglobin 12.4 g/dl (13.0-16.5); Lymphocyte # 1.33 X10^3/ul (4.0); Lymphocyte % 10.9 % (19-41); Mean Corp Hgb Conc 31.8 g/gl (32-36); Mean Corpuscular Hgb 26.9 pg (27.0-32.0); Mean Corpuscular Volume 84.6 fL (80-94); Mean Platelet Vol. 10.9 fl (6.2-12.0); Monocyte# 1.59 X10^3/uL; Neutrophil # 9.18 X10^3/uL (2.7-7.7); Neutrophil % 75.3 % (47-70); Platelet Count 172 K/mm3 (150-450); RBC Distribution Width CV 16.3 % (11.6-14.6); RBC Distribution Width SD 50.4 fl (35.1-43.9); Red Blood Count 4.61 M/mm3 (4.6-6.2); White Blood Count 12.2 K/mm3 (4.4-11.0)
[2018-03-04 06:30] LABS: Differential Indicated SCAN CRITERIA MET; POSITIVE COUNT NO; POSITIVE DIFFERENTIAL YES; POSITIVE MORPHOLOGY NO
[2018-03-04 06:41] LABS: Differential Comment SCANNED; Reactive Lymphocyte 2+
[2018-03-04] MEDS: Ketorolac 15 MG/ML Vial IV ×2 (08:33→14:01)
[2018-03-04] MEDS: Glucerna Shake 120 ML LIQUID PO ×2 (08:39→22:01)
[2018-03-04] MEDS: Gabapentin 100 MG Capsule PO (08:39)
--- NOTE | 2018-03-04 08:50 | CASEMGMT ---
Social Work Note SW faxed over updated clinicals to Frances at [facility]. PT/Ot have been ordered for pt and this worker will fax over PT/OT notes when available. Per conversation with Frances yesterday, pt will return to [facility] under skilled and will need pre-cert. Plan: Return to [facility] at discharge pending pre-cert. 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
[2018-03-04] MEDS: Enoxaparin 40 MG/0.4 ML Syringe SC (09:48)
[2018-03-04] MEDS: 0.9% NaCl Peripheral Flush Adult/Peds IV (09:48)
[2018-03-04] MEDS: Ceftriaxone 1 GM/50 mL Premix Q24 IV (09:48)
[2018-03-04] MEDS: DULoxetine Hcl 60 MG Capsule 120 MG PO (09:49)
[2018-03-04] MEDS: amLODIPine 10 MG Tablet PO (09:49)
[2018-03-04] MEDS: Rivastigmine Tartrate 1.5 MG Capsule 3 MG PO ×2 (09:49→22:01)
[2018-03-04] MEDS: busPIRone 5 MG Tablet PO ×2 (09:49→22:04)
[2018-03-04] MEDS: Lisinopril 2.5 MG Tablet PO ×2 (09:50→22:02)
[2018-03-04] MEDS: Senna/Docusate Sodium 1 Tablet 2 TABLET PO ×2 (09:50→22:02)
--- NOTE | 2018-03-04 10:24 | PCM.PN.HOSP ---
Patient Problems: Active and Suspected Problems (Last Reviewed 12/19/17 @ 12:40 by Liza Rico) Infection of right knee (Acute) Subjective: Knee feeling better post-op. No new complaints. Vitals/I&O's: Vital Signs Temp Pulse Resp BP Pulse Ox 36.8 C 80 18 120/79 96 03/04/18 08:30 03/04/18 08:30 03/04/18 08:30 03/04/18 08:30 03/04/18 08:30 Oxygen Flow Rate (L/min) 2 Oxygen Delivery Method Room Air Weight: 101.7 kg Body Mass Index (BMI) 38.5 Intake and Output for Last 24 Hours 03/02/18 03/03/18 03/04/18 23:59 23:59 23:59 Intake Total 2756 / 2756 1666 / 1666 Output Total 400 / 400 400 / 400 Balance 2356 / 2356 1266 / 1266 General: Alert, Cooperative, No apparent distress HEENT: Atraumatic, Normocephalic Neck: No Nodes, Thyroid Normal Size and Texture Lungs: Clear to auscultation, Normal air movement, No rhonchi, No wheeze Cardiovascular: Regular rate, Regular Rhythm, Normal S1, Normal S2, No murmurs Abdomen: Bowel Sounds Present, Soft, Non Tender, Non-Distended, No Hepato-splenomegaly Extremities: - - right knee wrapped--did not remove Psych/Mental Status: Normal Affect, Appropriate Laboratory Results 03/03/18 16:00: Urine Color Yellow, Urine Clarity Clear, Urine pH 6.0, Ur Specific [place] 1.020, Urine Protein 15 H, Urine Glucose (UA) Normal, Urine Ketones 5 H, Urine Occult Blood Negative, Urine Nitrite Negative, Urine Bilirubin Negative, Urine Urobilinogen 4 H, Ur Leukocyte Esterase Negative, Urine RBC 0 SEEN, Urine WBC 0 SEEN, Ur Squamous Epith Cells 0 SEEN, Urine Bacteria 0 SEEN, Urine Mucus 0 SEEN 03/04/18 05:40: WBC 12.2 H, RBC 4.61, Hgb 12.4 L, Hct 39.0 L, MCV 84.6, MCH 26.9 L, MCHC 31.8 L, RDW 16.3 H, RDW Differential 50.4 H, Plt Count 172, MPV 10.9, Immature Gran % (Auto) 0.200, Neut % (Auto) 75.3 H, Lymph % (Auto) 10.9 L, [place] % (Auto) 13.0 H, Eos % (Auto) 0.4, Baso % (Auto) 0.2, Absolute Neuts (auto) 9.2 H, Absolute Lymphs (auto) 1.33, Total Counted Not Reportable, Differential Comment SCANNED, Diff Path Review May foll, Reactive Lymphocytes 2+ 03/04/18 05:40: Sodium 140, Potassium 3.7, Chloride 106, Carbon Dioxide 27.0, Anion Gap 7, BUN 12, Creatinine 0.77, Estim Creat Clear Calc 87.56, Est GFR (MDRD) Af Amer 134, Est GFR (MDRD) Non-Af 110, BUN/Creatinine Ratio 15.6, Glucose 137 H, Calcium 8.1 L, Magnesium 1.8 Current Medications Acetaminophen (Tylenol) 1,000 mg PO Q8 [facility] Last Admin: 03/04/18 05:45 Dose: 1,000 mg Amlodipine Besylate (Norvasc) 10 mg PO DAILY [facility] Last Admin: 03/04/18 09:49 Dose: 10 mg Atorvastatin Calcium (Lipitor) 40 mg PO QHS [facility] Last Admin: 03/03/18 22:16 Dose: 40 mg Buspirone HCl (Buspar) 5 mg PO BID [facility] Last Admin: 03/04/18 09:49 Dose: 5 mg Duloxetine HCl (Cymbalta) 120 mg PO DAILY [facility] Last Admin: 03/04/18 09:49 Dose: 120 mg Enoxaparin Sodium (Lovenox) 40 mg SC DAILY@1000 [facility] Last Admin: 03/04/18 09:48 Dose: 40 mg [facility] ([facility]in) [facility] Last Admin: 03/04/18 08:39 Dose: 100 mg Vancomycin HCl (Vancomycin) 1,000 mg in 200 mls @ 200 mls/hr IV Q12H [facility] Last Admin: 03/04/18 05:46 Dose: 200 mls/hr Ceftriaxone Sodium (Rocephin) 1 gm in 50 mls @ 100 mls/hr IV Q24 [facility] Last Admin: 03/04/18 09:48 Dose: 100 mls/hr Ketorolac Tromethamine (Toradol) 15 mg IV Q6H PRN PRN PRN Reason: MILD-MOD PAIN (1-5/10) Last Admin: 03/04/18 08:33 Dose: 15 mg Lisinopril (Zestril) 2.5 mg PO BID [facility] Last Admin: 03/04/18 09:50 Dose: 2.5 mg Magnesium Hydroxide (Milk Of Magnesia) 30 ml PO DAILY PRN PRN PRN Reason: Constipation Morphine Sulfate () 2 mg IV Q2H PRN PRN PRN Reason: SEVERE PAIN (6-10/10) Last Admin: 03/04/18 05:45 Dose: 2 mg Nutritional Formula (Lactose Free) (Glucerna Shake) 120 ml PO TIDCM [facility] Last Admin: 03/04/18 08:39 Dose: 120 ml Oxycodone HCl (Oxyir) 5 - 10 mg PO Q4H PRN PRN PRN Reason: MOD-SEVERE PAIN (4-1010) Last Admin: 03/04/18 08:33 Dose: 10 mg Promethazine HCl (Phenergan) 12.5 mg IM Q6H PRN PRN; Protocol PRN Reason: NAUSEA/VOMITING Rivastigmine Tartrate (Exelon) 3 mg PO BID [facility] Last Admin: 03/04/18 09:49 Dose: 3 mg Senna/Docusate Sodium (Senokot-S, Lexi-Colace) 2 tablet PO BID [facility] Last Admin: 03/04/18 09:50 Dose: 2 tablet Sodium Chloride () 5 - 30 ml IV UD PRN PRN Reason: SALINE FLUSH Last Admin: 03/04/18 09:48 Dose: 20 ml Medical Necessity - Tobacco Use Smoking Status: Former smoker Tobacco Use: Non-smoker Assessment/Plan Active and Suspected Problems (Last Reviewed 12/19/17 @ 12:40 by Liza Rico) Infection of right knee (Acute) 1. right septic knee Culture growing out Group B strep POD #1: Irrigation debridement right total knee replacement with complete synovectomy polyethylene exchange 1 component revision right total knee on Vanc. ID following. await surgical cultures. 2. hypokalemia improved, but still low, will replace Mag ok, but not optimal, so will replace as well. 3. HTN: stable 4. DVT proph: LMWH Code Visit Inpatient E&M: 27848 Subs Hosp L2
--- NOTE | 2018-03-04 10:28 | PN_ITS ---
Patient Problems: Active and Suspected Problems (Last Reviewed 12/19/17 @ 12:40 by Liza Rico) Infection of right knee (Acute) Subjective: Knee feeling better post-op. No new complaints. Vitals/I&O's: Vital Signs Temp Pulse Resp BP Pulse Ox 36.8 C 80 18 120/79 96 03/04/18 08:30 03/04/18 08:30 03/04/18 08:30 03/04/18 08:30 03/04/18 08:30 Oxygen Flow Rate (L/min) 2 Oxygen Delivery Method Room Air Weight: 101.7 kg Body Mass Index (BMI) 38.5 Intake and Output for Last 24 Hours 03/02/18 03/03/18 03/04/18 23:59 23:59 23:59 Intake Total 2756 / 2756 1666 / 1666 Output Total 400 / 400 400 / 400 Balance 2356 / 2356 1266 / 1266 General: Alert, Cooperative, No apparent distress HEENT: Atraumatic, Normocephalic Neck: No Nodes, Thyroid Normal Size and Texture Lungs: Clear to auscultation, Normal air movement, No rhonchi, No wheeze Cardiovascular: Regular rate, Regular Rhythm, Normal S1, Normal S2, No murmurs Abdomen: Bowel Sounds Present, Soft, Non Tender, Non-Distended, No Hepato- splenomegaly Extremities: - - right knee wrapped--did not remove Psych/Mental Status: Normal Affect, Appropriate Laboratory Results 03/03/18 16:00: Urine Color Yellow, Urine Clarity Clear, Urine pH 6.0, Ur Specific [place] 1.020, Urine Protein 15 H, Urine Glucose (UA) Normal, Urine Ketones 5 H, Urine Occult Blood Negative, Urine Nitrite Negative, Urine Bilirubin Negative, Urine Urobilinogen 4 H, Ur Leukocyte Esterase Negative, Urine RBC 0 SEEN, Urine WBC 0 SEEN, Ur Squamous Epith Cells 0 SEEN, Urine Bacteria 0 SEEN, Urine Mucus 0 SEEN 03/04/18 05:40: WBC 12.2 H, RBC 4.61, Hgb 12.4 L, Hct 39.0 L, MCV 84.6, MCH 26.9 L, MCHC 31.8 L, RDW 16.3 H, RDW Differential 50.4 H, Plt Count 172, MPV 10.9, Immature Gran % (Auto) 0.200, Neut % (Auto) 75.3 H, Lymph % (Auto) 10.9 L , [place] % (Auto) 13.0 H, Eos % (Auto) 0.4, Baso % (Auto) 0.2, Absolute Neuts ( auto) 9.2 H, Absolute Lymphs (auto) 1.33, Total Counted Not Reportable, Differential Comment SCANNED, Diff Path Review May foll, Reactive Lymphocytes 2+ 03/04/18 05:40: Sodium 140, Potassium 3.7, Chloride 106, Carbon Dioxide 27.0, Anion Gap 7, BUN 12, Creatinine 0.77, Estim Creat Clear Calc 87.56, Est GFR ( MDRD) Af Amer 134, Est GFR (MDRD) Non-Af 110, BUN/Creatinine Ratio 15.6, Glucose 137 H, Calcium 8.1 L, Magnesium 1.8 Current Medications Acetaminophen (Tylenol) 1,000 mg PO Q8 [facility] Last Admin: 03/04/18 05:45 Dose: 1,000 mg Amlodipine Besylate (Norvasc) 10 mg PO DAILY [facility] Last Admin: 03/04/18 09:49 Dose: 10 mg Atorvastatin Calcium (Lipitor) 40 mg PO QHS [facility] Last Admin: 03/03/18 22:16 Dose: 40 mg Buspirone HCl (Buspar) 5 mg PO BID [facility] Last Admin: 03/04/18 09:49 Dose: 5 mg Duloxetine HCl (Cymbalta) 120 mg PO DAILY [facility] Last Admin: 03/04/18 09:49 Dose: 120 mg Enoxaparin Sodium (Lovenox) 40 mg SC DAILY@1000 [facility] Last Admin: 03/04/18 09:48 Dose: 40 mg [facility] Last Admin: 03/04/18 08:39 Dose: 100 mg Vancomycin HCl (Vancomycin) 1,000 mg in 200 mls @ 200 mls/hr IV Q12H [facility] Last Admin: 03/04/18 05:46 Dose: 200 mls/hr Ceftriaxone Sodium (Rocephin) 1 gm in 50 mls @ 100 mls/hr IV Q24 [facility] Last Admin: 03/04/18 09:48 Dose: 100 mls/hr Ketorolac Tromethamine (Toradol) 15 mg IV Q6H PRN PRN PRN Reason: MILD-MOD PAIN (1-5/10) Last Admin: 03/04/18 08:33 Dose: 15 mg Lisinopril (Zestril) 2.5 mg PO BID [facility] Last Admin: 03/04/18 09:50 Dose: 2.5 mg Magnesium Hydroxide (Milk Of Magnesia) 30 ml PO DAILY PRN PRN PRN Reason: Constipation Morphine Sulfate () 2 mg IV Q2H PRN PRN PRN Reason: SEVERE PAIN (6-10/10) Last Admin: 03/04/18 05:45 Dose: 2 mg Nutritional Formula (Lactose Free) (Glucerna Shake) 120 ml PO TIDCM [facility] Last Admin: 03/04/18 08:39 Dose: 120 ml Oxycodone HCl (Oxyir) 5 - 10 mg PO Q4H PRN PRN PRN Reason: MOD-SEVERE PAIN (4-1010) Last Admin: 03/04/18 08:33 Dose: 10 mg Promethazine HCl (Phenergan) 12.5 mg IM Q6H PRN PRN; Protocol PRN Reason: NAUSEA/VOMITING Rivastigmine Tartrate (Exelon) 3 mg PO BID [facility] Last Admin: 03/04/18 09:49 Dose: 3 mg Senna/Docusate Sodium (Senokot-S, Lexi-Colace) 2 tablet PO BID [facility] Last Admin: 03/04/18 09:50 Dose: 2 tablet Sodium Chloride () 5 - 30 ml IV UD PRN PRN Reason: SALINE FLUSH Last Admin: 03/04/18 09:48 Dose: 20 ml Medical Necessity - Tobacco Use Smoking Status: Former smoker Tobacco Use: Non-smoker Assessment/Plan Active and Suspected Problems (Last Reviewed 12/19/17 @ 12:40 by Liza Rico) Infection of right knee (Acute) 1. right septic knee * Culture growing out Group B strep * POD #1: Irrigation debridement right total knee replacement with complete synovectomy polyethylene exchange 1 component revision right total knee * on Vanc. ID following. * await surgical cultures. 2. hypokalemia * improved, but still low, will replace * Mag ok, but not optimal, so will replace as well. 3. HTN: * stable 4. DVT proph: LMWH Code Visit Inpatient E&M: 76923 Subs Hosp L2
--- NOTE | 2018-03-04 13:18 | PN.ID_ITS ---
Patient Problems: Active and Suspected Problems (Last Reviewed 12/19/17 @ 12:40 by Liza Rico) Infection of right knee (Acute) Subjective: Feeling ok, pain controlled, no fever. No rash or n/v/d with iv abx. - Physical Exam General: Alert, Cooperative Lungs: Clear to auscultation, Normal air movement Cardiovascular: Regular rate, Regular Rhythm Abdomen: Soft, Non Tender, Non-Distended Skin: Incision - leg wrapped Vital Signs Temp Pulse Resp BP Pulse Ox 98.3 F 80 18 120/79 96 03/04/18 08:30 03/04/18 08:30 03/04/18 08:30 03/04/18 08:30 03/04/18 08:30 Oxygen Flow Rate (L/min) 2 Oxygen Delivery Method Room Air Weight: 101.7 kg Body Mass Index (BMI) 38.5 Intake and Output for Last 24 Hours 03/02/18 03/03/18 03/04/18 23:59 23:59 23:59 Intake Total 2756 / 2756 1666 / 1666 Output Total 400 / 400 400 / 400 Balance 2356 / 2356 1266 / 1266 Microbiology Past 72 Hours 03/03/18 17:56 Gram Stain - Final Tissue - Knee Wound Culture - Preliminary Streptococcus agalactiae (B) 03/03/18 17:56 Gram Stain - Final Tissue - Knee Wound Culture - Preliminary Gram positive organism 03/03/18 17:56 Gram Stain - Final Tissue - Knee Laboratory Tests Past 24 Hrs 03/03/18 03/04/18 03/04/18 16:00 05:40 05:40 WBC 12.2 H RBC 4.61 Hgb 12.4 L Hct 39.0 L MCV 84.6 MCH 26.9 L MCHC 31.8 L RDW 16.3 H RDW Differential 50.4 H Plt Count 172 MPV 10.9 Immature Gran % (Auto) 0.200 Neut % (Auto) 75.3 H Lymph % (Auto) 10.9 L [place] % (Auto) 13.0 H Eos % (Auto) 0.4 Baso % (Auto) 0.2 Absolute Neuts (auto) 9.2 H Absolute Lymphs (auto) 1.33 Total Counted Not Reportable Differential Comment SCANNED Diff Path Review May foll Reactive Lymphocytes 2+ Sodium 140 Potassium 3.7 Chloride 106 Carbon Dioxide 27.0 Anion Gap 7 BUN 12 Creatinine 0.77 Estim Creat Clear Calc 87.56 Est GFR (MDRD) Af Amer 134 Est GFR (MDRD) Non-Af 110 BUN/Creatinine Ratio 15.6 Glucose 137 H Calcium 8.1 L Magnesium 1.8 Urine Color Yellow Urine Clarity Clear Urine pH 6.0 Ur Specific [place] 1.020 Urine Protein 15 H Urine Glucose (UA) Normal Urine Ketones 5 H Urine Occult Blood Negative Urine Nitrite Negative Urine Bilirubin Negative Urine Urobilinogen 4 H Ur Leukocyte Esterase Negative Urine RBC 0 SEEN Urine WBC 0 SEEN Ur Squamous Epith Cells 0 SEEN Urine Bacteria 0 SEEN Urine Mucus 0 SEEN Medical Necessity - Tobacco Use Smoking Status: Former smoker Tobacco Use: Non-smoker Route of nutrition/ use of supplements: [] Nutritional Intake: [] IV Site: [] Guidry Catheter: [] - Assessment/Plan Antibiotics: [] Assessment/Plan: [] Active and Suspected Problems (Last Reviewed 12/19/17 @ 12:40 by Liza Rico) Infection of right knee (Acute) GBS R knee PJI - knee aspirate with 30k wbc with 92% neutrophils. Taken to OR by Dr. Cleary for debridement and poly exchange. Aspirate and surg cx with GBS. Will stop vanc. Continue ceftriaxone for planned 6 week course, stop date 04/14/18. Will order picc. Weekly bmp, cbc, and esr while on iv abx. will follow, d/w classification case manager.
--- NOTE | 2018-03-04 13:53 | CASEMGMT ---
Social Work Note SW faxed updated clinicals to Frances at [facility] including progress notes and PT/OT evaluation. Plan: Return to [facility] pending pre-cert Callie Agrawal MENTAL HEALTH NURSE PRACTITIONER, PHYSICAL THERAPIST CLINIC DIRECTOR
--- NOTE | 2018-03-04 14:44 | NURSING ---
Radha called with [facility] for PICC line placement. Radha states they will call us with time of arrival.
--- NOTE | 2018-03-04 17:14 | PCM.PN.ORT ---
Patient Problems: Active and Suspected Problems (Last Reviewed 12/19/17 @ 12:40 by Liza Rico) Infection of right knee (Acute) Subjective: Patient doing well. Resting comfortably. States pain is under control. No issues overnight. No chest pain or shortness of breath. No calf pain. Infectious disease note was noted today. Plan for 6 weeks IV ceftriaxone. Patient has strep agalactiae. - Physical Exam General: Alert, Oriented x3, Cooperative Extremities: - - Right lower extremity: Dressing is clean dry and intact Sensations intact to light touch saphenous, sural, superficial peroneal, deep peroneal, and tibial distributions Motors intact EHL, DF, PF calves are soft and supple Vital Signs Temp Pulse Resp BP Pulse Ox 98.0 F 84 18 121/66 H 92 03/04/18 14:30 03/04/18 14:30 03/04/18 14:30 03/04/18 14:30 03/04/18 14:30 Oxygen Flow Rate (L/min) 2 Oxygen Delivery Method Room Air Weight: 224 lb 3.362 oz Body Mass Index (BMI) 38.5 Intake and Output for Last 24 Hours 03/02/18 03/03/18 03/04/18 23:59 23:59 23:59 Intake Total 2756 / 2756 3066 / 3066 Output Total 400 / 400 1000 / 1000 Balance 2356 / 2356 2066 / 2066 Microbiology Past 72 Hours 03/03/18 17:56 Gram Stain - Final Tissue - Knee Wound Culture - Preliminary Streptococcus agalactiae (B) 03/03/18 17:56 Gram Stain - Final Tissue - Knee Wound Culture - Preliminary Gram positive organism 03/03/18 17:56 Gram Stain - Final Tissue - Knee Laboratory Tests Past 24 Hrs 03/04/18 03/04/18 05:40 05:40 WBC 12.2 H RBC 4.61 Hgb 12.4 L Hct 39.0 L MCV 84.6 MCH 26.9 L MCHC 31.8 L RDW 16.3 H RDW Differential 50.4 H Plt Count 172 MPV 10.9 Immature Gran % (Auto) 0.200 Neut % (Auto) 75.3 H Lymph % (Auto) 10.9 L [place] % (Auto) 13.0 H Eos % (Auto) 0.4 Baso % (Auto) 0.2 Absolute Neuts (auto) 9.2 H Absolute Lymphs (auto) 1.33 Total Counted Not Reportable Differential Comment SCANNED Diff Path Review May foll Reactive Lymphocytes 2+ Sodium 140 Potassium 3.7 Chloride 106 Carbon Dioxide 27.0 Anion Gap 7 BUN 12 Creatinine 0.77 Estim Creat Clear Calc 87.56 Est GFR (MDRD) Af Amer 134 Est GFR (MDRD) Non-Af 110 BUN/Creatinine Ratio 15.6 Glucose 137 H Calcium 8.1 L Magnesium 1.8 Medical Necessity - Tobacco Use Smoking Status: Former smoker Tobacco Use: Non-smoker Assessment/Plan Active and Suspected Problems (Last Reviewed 12/19/17 @ 12:40 by Liza Rico) Infection of right knee (Acute) Stop day 1 irrigation debridement polyethylene exchange right total knee replacement with positive cultures for strep agalactia 1. Antibiotics: Per infectious disease 6 weeks ceftriaxone 2. Pain control: Currently under control per primary service 3. DVT prophylaxis: Lovenox, recommend continuing for 2 weeks followed by 2 weeks of 81 mg aspirin 80 4. Physical therapy: Weight-bear as tolerated activity as tolerated, range of motion as tolerated. 5. Disposition: Per primary service when IV antibiotics arranged patient likely be discharged to detention facility [facility] came [facility]. Recommend follow-up with orthopedics in 2 weeks for wound check. [facility] Office:
--- NOTE | 2018-03-04 17:18 | PN.ORTHO_ITS ---
Patient Problems: Active and Suspected Problems (Last Reviewed 12/19/17 @ 12:40 by Liza Rico) Infection of right knee (Acute) Subjective: Patient doing well. Resting comfortably. States pain is under control. No issues overnight. No chest pain or shortness of breath. No calf pain. Infectious disease note was noted today. Plan for 6 weeks IV ceftriaxone. Patient has strep agalactiae. - Physical Exam General: Alert, Oriented x3, Cooperative Extremities: - - Right lower extremity: Dressing is clean dry and intact Sensations intact to light touch saphenous, sural, superficial peroneal, deep peroneal, and tibial distributions Motors intact EHL, DF, PF calves are soft and supple Vital Signs Temp Pulse Resp BP Pulse Ox 98.0 F 84 18 121/66 H 92 03/04/18 14:30 03/04/18 14:30 03/04/18 14:30 03/04/18 14:30 03/04/18 14:30 Oxygen Flow Rate (L/min) 2 Oxygen Delivery Method Room Air Weight: 224 lb 3.362 oz Body Mass Index (BMI) 38.5 Intake and Output for Last 24 Hours 03/02/18 03/03/18 03/04/18 23:59 23:59 23:59 Intake Total 2756 / 2756 3066 / 3066 Output Total 400 / 400 1000 / 1000 Balance 2356 / 2356 2066 / 2066 Microbiology Past 72 Hours 03/03/18 17:56 Gram Stain - Final Tissue - Knee Wound Culture - Preliminary Streptococcus agalactiae (B) 03/03/18 17:56 Gram Stain - Final Tissue - Knee Wound Culture - Preliminary Gram positive organism 03/03/18 17:56 Gram Stain - Final Tissue - Knee Laboratory Tests Past 24 Hrs 03/04/18 03/04/18 05:40 05:40 WBC 12.2 H RBC 4.61 Hgb 12.4 L Hct 39.0 L MCV 84.6 MCH 26.9 L MCHC 31.8 L RDW 16.3 H RDW Differential 50.4 H Plt Count 172 MPV 10.9 Immature Gran % (Auto) 0.200 Neut % (Auto) 75.3 H Lymph % (Auto) 10.[address] [place] % (Auto) 13.0 H Eos % (Auto) 0.4 Baso % (Auto) 0.2 Absolute Neuts (auto) 9.2 H Absolute Lymphs (auto) 1.33 Total Counted Not Reportable Differential Comment SCANNED Diff Path Review May foll Reactive Lymphocytes 2+ Sodium 140 Potassium 3.7 Chloride 106 Carbon Dioxide 27.0 Anion Gap 7 BUN 12 Creatinine 0.77 Estim Creat Clear Calc 87.56 Est GFR (MDRD) Af Amer 134 Est GFR (MDRD) Non-Af 110 BUN/Creatinine Ratio 15.6 Glucose 137 H Calcium 8.1 L Magnesium 1.8 Medical Necessity - Tobacco Use Smoking Status: Former smoker Tobacco Use: Non-smoker Assessment/Plan Active and Suspected Problems (Last Reviewed 12/19/17 @ 12:40 by Liza Rico) Infection of right knee (Acute) Stop day 1 irrigation debridement polyethylene exchange right total knee replacement with positive cultures for strep agalactia 1. Antibiotics: Per infectious disease 6 weeks ceftriaxone 2. Pain control: Currently under control per primary service 3. DVT prophylaxis: Lovenox, recommend continuing for 2 weeks followed by 2 weeks of 81 mg aspirin 80 4. Physical therapy: Weight-bear as tolerated activity as tolerated, range of motion as tolerated. 5. Disposition: Per primary service when IV antibiotics arranged patient likely be discharged to alf facility he came from. Recommend follow -up with orthopedics in 2 weeks for wound check. [facility] Office:
[2018-03-04] MEDS: Magnesium Oxide 400 MG Tablet PO (20:37)
[2018-03-04] MEDS: Atorvastatin Calcium 40 MG Tablet PO (22:02)
[2018-03-05 02:15] VITALS: BP 131/73; PULSE 89; RESP 18; TEMP 37.4; O2SAT 94
[2018-03-05] MEDS: Acetaminophen 500 MG Tablet 1000 MG PO ×2 (05:19→14:02)
[2018-03-05] MEDS: oxyCODONE 5 MG Tablet PO ×3 (05:20→14:01)
[2018-03-05] MEDS: 0.9% NaCl PICC Flush 10 ML IV (05:41)
[2018-03-05] MEDS: 0.9% NaCl Peripheral Flush Adult/Peds IV ×3 (05:42→17:29)
[2018-03-05 06:10] LABS: Anion Gap 6 (5-15); BUN 12 mg/dL (7-18); BUN/Creat Ratio 18.3 RATIO (10-20); Calcium,Total 8.1 mg/dL (8.5-10.1); Chloride 104 mmol/L (98-107); Creatinine, Serum 0.65 mg/dL (0.70-1.30); EST Glomerular Filtration Rate 133 mL/min (>60); Est Glom Filt Rate - Afr Amer 161 mL/min (>60); Estimated Creatinine Clearance 103.73 ml/min; Glucose 120 mg/dL (74-106); Potassium 3.7 mmol/L (3.5-5.1); Sodium Level 141 mmol/L (136-145)
[2018-03-05 06:13] LABS: Hematocrit 38.1 % (40-54); Hemoglobin 12.2 g/dl (13.0-16.5); Mean Corpuscular Hgb 27.2 pg (27.0-32.0); Mean Platelet Vol. 10.7 fl (6.2-12.0); Platelet Count 192 K/mm3 (150-450); RBC Distribution Width CV 16.2 % (11.6-14.6); RBC Distribution Width SD 50.4 fl (35.1-43.9); Red Blood Count 4.48 M/mm3 (4.6-6.2); White Blood Count 9.5 K/mm3 (4.4-11.0)
[2018-03-05 06:18] LABS: Scan Indicated on CBC? Y/N NO
[2018-03-05 07:35] VITALS: O2SAT 85; O2SAT 92
[2018-03-05 07:45] VITALS: BP 132/74; PULSE 97; RESP 18; TEMP 37.3; O2SAT 94
[2018-03-05] MEDS: Gabapentin 100 MG Capsule PO (07:49)
[2018-03-05] MEDS: Magnesium Oxide 400 MG Tablet PO (07:49)
--- NOTE | 2018-03-05 08:51 | CASEMGMT ---
Social Work Note ELMER faxed updated clinicals to Frances at [facility]. [facility]. Per Ariela Daniels is not available at the moment and this worker left a message for Frances informing her to start pre-cert if she hasn't already. Plan: Return to [facility] Pending Pre-cert Callie Agrawal NATURAL GAS ENGINEER, PREPRESS SUPERVISOR
--- NOTE | 2018-03-05 09:40 | CASEMGMT ---
Social Work Note SW received call from Frances at [facility] stating that she started pre-cert yesterday and that she is hoping to hear back today from insurance. ELMER will continue to follow along to assist with discharge planning. Plan: Return to [facility] pending pre-cert Callie Agrawal FENCE BUILDER, NEWS INTERNSHIP
[2018-03-05 09:42] LABS: Pathologist Review Reviewed
[2018-03-05] MEDS: Enoxaparin 40 MG/0.4 ML Syringe SC (09:50)
[2018-03-05] MEDS: amLODIPine 10 MG Tablet PO (09:50)
[2018-03-05] MEDS: DULoxetine Hcl 60 MG Capsule 120 MG PO (09:50)
[2018-03-05] MEDS: busPIRone 5 MG Tablet PO (09:50)
[2018-03-05] MEDS: Senna/Docusate Sodium 1 Tablet 2 TABLET PO (09:50)
[2018-03-05] MEDS: Rivastigmine Tartrate 1.5 MG Capsule 3 MG PO (09:50)
[2018-03-05] MEDS: Lisinopril 2.5 MG Tablet PO (09:50)
--- NOTE | 2018-03-05 09:52 | PCM.PN.HOSP ---
Patient Problems: Active and Suspected Problems (Last Reviewed 12/19/17 @ 12:40 by Liza Rico) Infection of right knee (Acute) Subjective: Still with knee pain, but tolerable. Vitals/I&O's: Vital Signs Temp Pulse Resp BP Pulse Ox 37.3 C H 97 18 132/74 H 94 03/05/18 07:45 03/05/18 07:45 03/05/18 07:45 03/05/18 07:45 03/05/18 07:45 Oxygen Flow Rate (L/min) 2 Oxygen Delivery Method Nasal Cannula Weight: 101.7 kg Body Mass Index (BMI) 38.5 Intake and Output for Last 24 Hours 03/03/18 03/04/18 03/05/18 23:59 23:59 23:59 Intake Total 2756 / 2756 3066 / 3066 Output Total 400 / 400 1000 / 1000 Balance 2356 / 2356 2065 / 2065 General: Alert, No apparent distress, - - up eating breakfast HEENT: Atraumatic, Normocephalic Extremities: Edema, - - right knee wrapped, did not remove. Skin: No rashes, No breakdown Microbiology Past 72 Hours 03/03/18 17:56 Tissue - Knee Gram Stain - Final 03/03/18 17:56 Tissue - Knee Wound Culture - Final Streptococcus agalactiae (B) 03/03/18 17:56 Tissue - Knee Gram Stain - Final 03/03/18 17:56 Tissue - Knee Wound Culture - Preliminary Gram positive organism 03/03/18 17:56 Tissue - Knee Gram Stain - Final Laboratory Results 03/04/18 05:40: Diff Path Review Reviewed 03/05/18 05:50: WBC 9.5, RBC 4.48 L, Hgb 12.2 L, Hct 38.1 L, MCV 85.0, MCH 27.2, MCHC 32.0, RDW 16.2 H, RDW Differential 50.4 H, Plt Count 192, MPV 10.7 03/05/18 05:50: Sodium 141, Potassium 3.7, Chloride 104, Carbon Dioxide 31.0, Anion Gap 6, BUN 12, Creatinine 0.65 L, Estim Creat Clear Calc 103.73, Est GFR (MDRD) Af Amer 161, Est GFR (MDRD) Non-Af 133, BUN/Creatinine Ratio 18.3, Glucose 120 H, Calcium 8.1 L Current Medications Acetaminophen (Tylenol) 1,000 mg PO Q8 [facility] Last Admin: 03/05/18 05:19 Dose: 1,000 mg Amlodipine Besylate (Norvasc) 10 mg PO DAILY [facility] Last Admin: 03/04/18 09:49 Dose: 10 mg Atorvastatin Calcium (Lipitor) 40 mg PO QHS [facility] Last Admin: 03/04/18 22:02 Dose: 40 mg Buspirone HCl (Buspar) 5 mg PO BID [facility] Last Admin: 03/04/18 22:04 Dose: 5 mg Duloxetine HCl (Cymbalta) 120 mg PO DAILY [facility] Last Admin: 03/04/18 09:49 Dose: 120 mg Enoxaparin Sodium (Lovenox) 40 mg SC DAILY@1000 [facility] Last Admin: 03/04/18 09:48 Dose: 40 mg [facility]) [facility] Admin: 03/05/18 07:49 Dose: 100 mg Ceftriaxone Sodium 2 gm/ (Sodium Chloride) 50 mls @ 100 mls/hr IV Q24 [facility] Lisinopril (Zestril) 2.5 mg PO BID [facility] Last Admin: 03/04/18 22:02 Dose: 2.5 mg Magnesium Hydroxide (Milk Of Magnesia) 30 ml PO DAILY PRN PRN PRN Reason: Constipation Magnesium Oxide (Mag-Ox 400) [facility] Stop: 03/05/18 17:01 Last Admin: 03/05/18 07:49 Dose: 400 mg Morphine Sulfate () 2 mg IV Q2H PRN PRN PRN Reason: SEVERE PAIN (6-10/10) Last Admin: 03/04/18 05:45 Dose: 2 mg Nutritional Formula (Lactose Free) (Glucerna Shake) 120 ml PO TIDCM [facility] Last Admin: 03/05/18 07:53 Dose: Not Given Oxycodone HCl (Oxyir) 5 - 10 mg PO Q4H PRN PRN PRN Reason: MOD-SEVERE PAIN (4-10/10) Last Admin: 03/05/18 05:20 Dose: 10 mg Promethazine HCl (Phenergan) 12.5 mg IM Q6H PRN PRN; Protocol PRN Reason: NAUSEA/VOMITING Rivastigmine Tartrate (Exelon) 3 mg PO BID [facility] Last Admin: 03/04/18 22:01 Dose: 3 mg Senna/Docusate Sodium (Senokot-S, Lexi-Colace) 2 tablet PO BID [facility] Last Admin: 03/04/18 22:02 Dose: 2 tablet Sodium Chloride () 5 - 30 ml IV UD PRN PRN Reason: SALINE FLUSH Last Admin: 03/05/18 05:42 Dose: 10 ml Sodium Chloride () 10 ml IV UD PRN PRN Reason: PICC FLUSH Last Admin: 03/05/18 05:41 Dose: 10 ml Medical Necessity - Tobacco Use Smoking Status: Former smoker Tobacco Use: Non-smoker Assessment/Plan Active and Suspected Problems (Last Reviewed 12/19/17 @ 12:40 by Liza Rico) Infection of right knee (Acute) 1. right septic knee Culture growing out Group B strep POD #2: Irrigation debridement right total knee replacement with complete synovectomy polyethylene exchange 1 component revision right total knee 6 weeks of IV ceftriaxone (stop date 04/14) weight bear as tolerated follow up with orthopaedics in 2 weeks. 2. hypokalemia improved 3. HTN: stable 4. DVT proph: LMWH x 2 weeks followed by 2 weeks of 81mg ASA (per ortho) 5. Dispo: to SNF pending precertification.
--- NOTE | 2018-03-05 09:55 | PN_ITS ---
Patient Problems: Active and Suspected Problems (Last Reviewed 12/19/17 @ 12:40 by Liza Rico) Infection of right knee (Acute) Subjective: Still with knee pain, but tolerable. Vitals/I&O's: Vital Signs Temp Pulse Resp BP Pulse Ox 37.3 C H 97 18 132/74 H 94 03/05/18 07:45 03/05/18 07:45 03/05/18 07:45 03/05/18 07:45 03/05/18 07:45 Oxygen Flow Rate (L/min) 2 Oxygen Delivery Method Nasal Cannula Weight: 101.7 kg Body Mass Index (BMI) 38.5 Intake and Output for Last 24 Hours 03/03/18 03/04/18 03/05/18 23:59 23:59 23:59 Intake Total 2756 / 2756 3066 / 3066 Output Total 400 / 400 1000 / 1000 Balance 2356 / 2356 2065 / 2065 General: Alert, No apparent distress, - - up eating breakfast HEENT: Atraumatic, Normocephalic Extremities: Edema, - - right knee wrapped, did not remove. Skin: No rashes, No breakdown Microbiology Past 72 Hours 03/03/18 17:56 Tissue - Knee Gram Stain - Final 03/03/18 17:56 Tissue - Knee Wound Culture - Final Streptococcus agalactiae (B) 03/03/18 17:56 Tissue - Knee Gram Stain - Final 03/03/18 17:56 Tissue - Knee Wound Culture - Preliminary Gram positive organism 03/03/18 17:56 Tissue - Knee Gram Stain - Final Laboratory Results 03/04/18 05:40: Diff Path Review Reviewed 03/05/18 05:50: WBC 9.5, RBC 4.48 L, Hgb 12.2 L, Hct 38.1 L, MCV 85.0, MCH 27.2 , MCHC 32.0, RDW 16.2 H, RDW Differential 50.4 H, Plt Count 192, MPV 10.7 03/05/18 05:50: Sodium 141, Potassium 3.7, Chloride 104, Carbon Dioxide 31.0, Anion Gap 6, BUN 12, Creatinine 0.65 L, Estim Creat Clear Calc 103.73, Est GFR ( MDRD) Af Amer 161, Est GFR (MDRD) Non-Af 133, BUN/Creatinine Ratio 18.3, Glucose 120 H, Calcium 8.1 L Current Medications Acetaminophen (Tylenol) 1,000 mg PO Q8 [facility] Last Admin: 03/05/18 05:19 Dose: 1,000 mg Amlodipine Besylate (Norvasc) 10 mg PO DAILY [facility] Last Admin: 03/04/18 09:49 Dose: 10 mg Atorvastatin Calcium (Lipitor) 40 mg PO QHS [facility] Last Admin: 03/04/18 22:02 Dose: 40 mg Buspirone HCl (Buspar) 5 mg PO BID [facility] Last Admin: 03/04/18 22:04 Dose: 5 mg Duloxetine HCl (Cymbalta) 120 mg PO DAILY [facility] Last Admin: 03/04/18 09:49 Dose: 120 mg Enoxaparin Sodium (Lovenox) 40 mg SC DAILY@1000 [facility] Last Admin: 03/04/18 09:48 Dose: 40 mg Gabapentin (Neurontin) [facility] Last Admin: 03/05/18 07:49 Dose: 100 mg Ceftriaxone Sodium 2 gm/ (Sodium Chloride) 50 mls @ 100 mls/hr IV Q24 [facility] Lisinopril (Zestril) 2.5 mg PO BID [facility] Last Admin: 03/04/18 22:02 Dose: 2.5 mg Magnesium Hydroxide (Milk Of Magnesia) 30 ml PO DAILY PRN PRN PRN Reason: Constipation Magnesium Oxide (Mag-Ox 400) 400 [facility] Stop: 03/05/18 17:01 Last Admin: 03/05/18 07:49 Dose: 400 mg Morphine Sulfate () 2 mg IV Q2H PRN PRN PRN Reason: SEVERE PAIN (6-10/10) Last Admin: 03/04/18 05:45 Dose: 2 mg Nutritional Formula (Lactose Free) (Glucerna Shake) 120 ml PO TIDCM [facility] Last Admin: 03/05/18 07:53 Dose: Not Given Oxycodone HCl (Oxyir) 5 - 10 mg PO Q4H PRN PRN PRN Reason: MOD-SEVERE PAIN (4-10/10) Last Admin: 03/05/18 05:20 Dose: 10 mg Promethazine HCl (Phenergan) 12.5 mg IM Q6H PRN PRN; Protocol PRN Reason: NAUSEA/VOMITING Rivastigmine Tartrate (Exelon) 3 mg PO BID [facility] Last Admin: 03/04/18 22:01 Dose: 3 mg Senna/Docusate Sodium (Senokot-S, Lexi-Colace) 2 tablet PO BID [facility] Last Admin: 03/04/18 22:02 Dose: 2 tablet Sodium Chloride () 5 - 30 ml IV UD PRN PRN Reason: SALINE FLUSH Last Admin: 03/05/18 05:42 Dose: 10 ml Sodium Chloride () 10 ml IV UD PRN PRN Reason: PICC FLUSH Last Admin: 03/05/18 05:41 Dose: 10 ml Medical Necessity - Tobacco Use Smoking Status: Former smoker Tobacco Use: Non-smoker Assessment/Plan Active and Suspected Problems (Last Reviewed 12/19/17 @ 12:40 by Liza Rico) Infection of right knee (Acute) 1. right septic knee * Culture growing out Group B strep * POD #2: Irrigation debridement right total knee replacement with complete synovectomy polyethylene exchange 1 component revision right total knee * 6 weeks of IV ceftriaxone (stop date 04/14) * weight bear as tolerated * follow up with orthopaedics in 2 weeks. 2. hypokalemia * improved 3. HTN: * stable 4. DVT proph: LMWH x 2 weeks followed by 2 weeks of 81mg ASA (per ortho) 5. Dispo: to SNF pending precertification.
--- NOTE | 2018-03-05 10:00 | PCM.TXEXTCAR ---
- Diet 03/04/18 08:31 Diet: Regular Diet Is pt able to select menu?: Yes - Routine Orders/Code Status O2 Frequency: Continuous Routine Lab Work: CBC, BMP - Wound(s) RT KNEE Wound Type: Surgical Incision Dressing Change: VERONICA WRAP - Therapies Weight Bearing: Weight bearing as tolerated Extremity Affected:: Right Lower Physical Therapy: Eval and Treat Occupational Therapy: Eval and Treat - Allergies/Procedures Done in Hospital Allergies/Adverse Reactions: Allergies No Known Allergies Allergy (Verified 12/19/17 12:40) Procedures: PICC line placement - Type of Care/Length of Stay Estimated LOS: Convalescent Care Less Than 30 days Type of Care Needed: Skilled Rehab Potential: Fair Prognosis: Good - Additional Orders/Day of Discharge Additional Orders: remove PICC when antibiotics completed. Day of Discharge: 03/05/18 - Dietary and Speech Recommendations Dietitian Recommendations/Changes: Rec adv diet as tolerated to cardiac/low cholesterol. - Follow Up Care Primary Care Physician: Jan Newman DO [STAFF PHYSICIAN] - Within 2 Weeks Please Follow Up With: Brennon Cleary MD When: 2 weeks
--- NOTE | 2018-03-05 10:03 | PCM.DC.SUM ---
Discharge Date and Diagnosis - Problem List Patient Problems: Active and Suspected Problems (Last Reviewed 12/19/17 @ 12:40 by Liza Rico) Septic arthritis of knee, right (Acute) Infection of right knee (Acute) Date of Admission: 03/03/18 Date of Discharge: 03/05/18 - Primary Discharge Diagnosis Active and Suspected Problems (Last Reviewed 12/19/17 @ 12:40 by Liza Rico) Infection of right knee (Acute) - Secondary Discharge Diagnosis Chronic Problems (Last Reviewed 12/19/17 @ 12:40 by Liza Rico) Osteoarthritis (Chronic) Status post total left knee replacement (Chronic) Depression (Chronic) Memory deficit (Chronic) COPD (chronic obstructive pulmonary disease) (Chronic) HLD (hyperlipidemia) (Chronic) HTN (hypertension) (Chronic) History of stroke (Chronic) Hospital Course and Treatment Imaging Results: Clinical Impression(s) from Imaging Studies Chest X-Ray 03/03/18 01:06 IMPRESSION: No evidence for acute cardiopulmonary pathology. Electronically Signed: Carlos Romano MD at 2:17 EDT , Service support , Madiha Hernandez Operations: - - Irrigation debridement right total knee replacement with complete synovectomy polyethylene exchange 1 component revision right total knee Summary of Care Provided: The patient is a 57 year old M presents with right septic knee. Taken to OR on 03/03. 1. right septic knee Culture growing out Group B strep POD #2: Irrigation debridement right total knee replacement with complete synovectomy polyethylene exchange 1 component revision right total knee 6 weeks of IV ceftriaxone (stop date 04/14) weight bear as tolerated follow up with orthopaedics in 2 weeks. 2. hypokalemia improved 3. HTN: stable 4. DVT proph: LMWH x 2 weeks followed by 2 weeks of 81mg ASA (per ortho) 5. Dispo: to SNF pending precertification.[] Discharge Diet: Low fat/ Low Cholesterol Discharge Activity: Return to Normal Activity Weight Bearing Status: Weight bearing as tolerated Keep extremity elevated above heart level: Right Leg Call your doctor if your incision/area has: Continuous Slow Oozing, Sudden Increased Bleeding, Increased Pain/ Swelling Call your doctor if you observe: Fever of 101 or Higher, Shortness of breath, Chest pain Home Medications: Medications to take at Discharge Amlodipine Besylate [Norvasc] 10 mg PO DAILY #30 tab 03/19/17 Atorvastatin Calcium [Lipitor] 40 mg PO DAILY 06/18/17 Duloxetine Hcl [Cymbalta] 120 mg PO DAILY 06/18/17 Lisinopril [Zestril] 5 mg PO BID 06/18/17 Fish Oil/Dha/Epa [Fish Oil 1,200 mg Fish Oil] 1 each PO DAILY 03/03/18 Furosemide [Lasix] 60 mg PO DAILY 03/03/18 Gabapentin [Neurontin] 100 mg PO BID 03/03/18 Rivastigmine Tartrate [Rivastigmine] 3 mg PO BID 03/03/18 Senna [Senokot] 8.6 mg PO QHS 03/03/18 Vitamin B Complex 1 capsule PO DAILY 03/03/18 busPIRone [Buspar] 2.5 mg PO BID 03/03/18 Acetaminophen [Tylenol] 1,000 mg PO Q8 tablet 03/05/18 Ceftriaxone 2 gm IV Q24 vial 03/05/18 Diazepam [Valium] 5 mg PO DAILY PRN #3 tab 03/05/18 Enoxaparin [Lovenox] 40 mg SC DAILY@1000 #14 syringe 03/05/18 Oxycodone [Oxyir] 5 mg PO Q6H PRN 3 Days #12 tab 03/05/18 Following Prescrptions Were Given to Patient: Diazepam [Valium] 5 mg PO DAILY PRN #3 tab PRN Reason: Anxiety Oxycodone [Oxyir] 5 mg PO Q6H PRN 3 Days #12 tab PRN Reason: Mod-Severe Pain (4-1010) Primary Care Physician: Jan Newman DO [STAFF PHYSICIAN] - Within 2 Weeks Please Follow Up With: Brennon Cleary MD When: 2 weeks Disposition: [facility] facility Minutes spent on discharge:: 36 Patient Condition:: Good Medical Necessity - Tobacco Use Smoking Status: Former smoker Tobacco Use: Non-smoker Meaningful Use Info Meaningful Use Diagnoses (Choose all that apply): None applicable Code Visit Inpatient E&M: 84267 Disch Hosp
--- NOTE | 2018-03-05 10:07 | DS.PCM_ITS ---
Discharge Date and Diagnosis - Problem List Patient Problems: Active and Suspected Problems (Last Reviewed 12/19/17 @ 12:40 by Liza Rico) Septic arthritis of knee, right (Acute) Infection of right knee (Acute) Date of Admission: 03/03/18 Date of Discharge: 03/05/18 - Primary Discharge Diagnosis Active and Suspected Problems (Last Reviewed 12/19/17 @ 12:40 by Liza Rico) Infection of right knee (Acute) - Secondary Discharge Diagnosis Chronic Problems (Last Reviewed 12/19/17 @ 12:40 by Liza Rico) Osteoarthritis (Chronic) Status post total left knee replacement (Chronic) Depression (Chronic) Memory deficit (Chronic) COPD (chronic obstructive pulmonary disease) (Chronic) HLD (hyperlipidemia) (Chronic) HTN (hypertension) (Chronic) History of stroke (Chronic) Hospital Course and Treatment Imaging Results: Clinical Impression(s) from Imaging Studies Chest X-Ray 03/03/18 01:06 IMPRESSION: No evidence for acute cardiopulmonary pathology. Electronically Signed: Carlos Romano MD at 2:17 EDT , Service support , Madiha Hernandez Operations: - - Irrigation debridement right total knee replacement with complete synovectomy polyethylene exchange 1 component revision right total knee Summary of Care Provided: The patient is a 57 year old M presents with right septic knee. Taken to OR on . 1. right septic knee * Culture growing out Group B strep * POD #2: Irrigation debridement right total knee replacement with complete synovectomy polyethylene exchange 1 component revision right total knee * 6 weeks of IV ceftriaxone (stop date 04/14) * weight bear as tolerated * follow up with orthopaedics in 2 weeks. 2. hypokalemia * improved 3. HTN: * stable 4. DVT proph: LMWH x 2 weeks followed by 2 weeks of 81mg ASA (per ortho) 5. Dispo: to SNF pending precertification.[] Discharge Diet: Low fat/ Low Cholesterol Discharge Activity: Return to Normal Activity Weight Bearing Status: Weight bearing as tolerated Keep extremity elevated above heart level: Right Leg Call your doctor if your incision/area has: Continuous Slow Oozing, Sudden Increased Bleeding, Increased Pain/ Swelling Call your doctor if you observe: Fever of 101 or Higher, Shortness of breath, Chest pain Home Medications: Medications to take at Discharge Amlodipine Besylate [Norvasc] 10 mg PO DAILY #30 tab 03/19/17 Atorvastatin Calcium [Lipitor] 40 mg PO DAILY 06/18/17 Duloxetine Hcl [Cymbalta] 120 mg PO DAILY 06/18/17 Lisinopril [Zestril] 5 mg PO BID 06/18/17 Fish Oil/Dha/Epa [Fish Oil 1,200 mg Fish Oil] 1 each PO DAILY 03/03/18 Furosemide [Lasix] 60 mg PO DAILY 03/03/18 Gabapentin [Neurontin] 100 mg PO BID 03/03/18 Rivastigmine Tartrate [Rivastigmine] 3 mg PO BID 03/03/18 Senna [Senokot] 8.6 mg PO QHS 03/03/18 Vitamin B Complex 1 capsule PO DAILY 03/03/18 busPIRone [Buspar] 2.5 mg PO BID 03/03/18 Acetaminophen [Tylenol] 1,000 mg PO Q8 tablet 03/05/18 Ceftriaxone 2 gm IV Q24 vial 03/05/18 Diazepam [Valium] 5 mg PO DAILY PRN #3 tab 03/05/18 Enoxaparin [Lovenox] 40 mg SC DAILY@1000 #14 syringe 03/05/18 Oxycodone [Oxyir] 5 mg PO Q6H PRN 3 Days #12 tab 03/05/18 Following Prescrptions Were Given to Patient: Diazepam [Valium] 5 mg PO DAILY PRN #3 tab PRN Reason: Anxiety Oxycodone [Oxyir] 5 mg PO Q6H PRN 3 Days #12 tab PRN Reason: Mod-Severe Pain (4-08/12) Primary Care Physician: Jan Newman DO [STAFF PHYSICIAN] - Within 2 Weeks Please Follow Up With: Brennon Cleary MD When: 2 weeks Disposition: Care Home facility Minutes spent on discharge:: 36 Patient Condition:: Good Medical Necessity - Tobacco Use Smoking Status: Former smoker Tobacco Use: Non-smoker Meaningful Use Info Meaningful Use Diagnoses (Choose all that apply): None applicable Code Visit Inpatient E&M: 34189 Disch Hosp
--- NOTE | 2018-03-05 10:21 | PCM.PN.ID ---
Patient Problems: Active and Suspected Problems (Last Reviewed 12/19/17 @ 12:40 by Liza Rico) Septic arthritis of knee, right (Acute) Infection of right knee (Acute) Subjective: Feeling ok, no fever, picc in place, d/c planned - Physical Exam General: Alert, Cooperative Lungs: Clear to auscultation, Normal air movement Cardiovascular: Regular rate, Regular Rhythm Abdomen: Soft, Non Tender, Non-Distended Skin: Incision - Knee wrapped Vital Signs Temp Pulse Resp BP Pulse Ox 99.2 F H 97 18 132/74 H 94 03/05/18 07:45 03/05/18 07:45 03/05/18 07:45 03/05/18 07:45 03/05/18 07:45 Oxygen Flow Rate (L/min) 2 Oxygen Delivery Method Nasal Cannula Weight: 101.7 kg Body Mass Index (BMI) 38.5 Intake and Output for Last 24 Hours 03/03/18 03/04/18 03/05/18 23:59 23:59 23:59 Intake Total 2756 / 2756 3066 / 3066 Output Total 400 / 400 1000 / 1000 Balance 2356 / 2356 2066 / 2066 Microbiology Past 72 Hours 03/03/18 17:56 Gram Stain - Final Tissue - Knee Wound Culture - Final Streptococcus agalactiae (B) 03/03/18 17:56 Gram Stain - Final Tissue - Knee Wound Culture - Preliminary Gram positive organism 03/03/18 17:56 Gram Stain - Final Tissue - Knee Laboratory Tests Past 24 Hrs 03/04/18 03/05/18 03/05/18 05:40 05:50 05:50 WBC 9.5 RBC 4.48 L Hgb 12.2 L Hct 38.1 L MCV 85.0 MCH 27.2 MCHC 32.0 RDW 16.2 H RDW Differential 50.4 H Plt Count 192 MPV 10.7 Diff Path Review Reviewed Sodium 141 Potassium 3.7 Chloride 104 Carbon Dioxide 31.0 Anion Gap 6 BUN 12 Creatinine 0.65 L Estim Creat Clear Calc 103.73 Est GFR (MDRD) Af Amer 161 Est GFR (MDRD) Non-Af 133 BUN/Creatinine Ratio 18.3 Glucose 120 H Calcium 8.1 L Medical Necessity - Tobacco Use Smoking Status: Former smoker Tobacco Use: Non-smoker Route of nutrition/ use of supplements: [] Nutritional Intake: [] IV Site: [] Guidry Catheter: [] - Assessment/Plan Antibiotics: [] Assessment/Plan: [] Active and Suspected Problems (Last Reviewed 12/19/17 @ 12:40 by Liza Rico) Infection of right knee (Acute) GBS R knee PJI - knee aspirate with 30k wbc with 92% neutrophils. Taken to OR 03/03/[address] Cleary for debridement and poly exchange. Aspirate and surg cx with GBS. Continue ceftriaxone for planned 6 week course, stop date 04/14/18. Placed picc. Weekly bmp, cbc, and esr while on iv abx. will follow, d/w Dr. Pratt
--- NOTE | 2018-03-05 10:54 | PCA ---
Chair alarm discontinued by CHERYL Copeland
[2018-03-05] MEDS: Glucerna Shake 120 ML LIQUID PO (13:10)
[2018-03-05 13:25] VITALS: O2SAT 92
[2018-03-05 15:20] VITALS: BP 127/69; PULSE 94; RESP 14; TEMP 37.2; O2SAT 94
[2018-03-05] MEDS: Magnesium Hydroxide 30 ML UDC PO (15:24)
--- NOTE | 2018-03-05 16:14 | NURSING ---
spO2 dropped to 88% while sleeping. placed on 2L NC and spO2 improved to 94%.
--- NOTE | 2018-03-05 16:45 | CASEMGMT ---
Social Work Note SW received call from Frances at [facility] that pre-cert was obtained. SW called Charge Nurse Becky to update her of this and to update Dr. Pratt. Charge Nurse Becky updated Dr. Pratt that pt is being discharged. ELMER faxed discharge paperwork to Frances at [facility] including transfer to extended care facility, signed medication and scripts, and Dr. Hernandez's script. Originals in SNF folder and copies on chart. SW set up transportation through [facility] via cot/ambulance for 5:30pm. SW placed call to Frances at [facility] to update her of transportation time. Transportation form in SNF folder and copy on chart. Per Frances this worker doesn't have to complete [facility] form in [facility] as pt came from SNF and is returning to SNF. SW updated Charge Nurse Becky and CHERYL Copeland of transportation time. Charge Nurse Becky informed pt of transportation time. ELMER placed call to pt's daughter in law Lesli Norton who is listed as pt's HCPOA and under pt's contact information. ELMER informed Lesli that pt will be discharging today back to [facility] and that transportation is set up for 5:30pm. Lesli thanked this SW for calling. SW back to inform pt that this worker called pt's daughter in law Lesli to update her that pt is being transported. On pt's chart it states that pt has a fiance named Janae Verma but no number listed for her. ELMER asked pt if he had a number for his fiance and pt states he doesn't but Lesli does. ELMER placed call back to Lesli to ask her if she has Janae's number and per Lesli Janae is in the hospital in the PCU having a procedure done but that pt doesn't know that she is having a procedure done. Lesli asked this worker to inform pt that Janae is still in the hospital and that Lesli will call pt later tonight. SW updated pt of this. Pt denied additional needs or concerns at this time. Plan: Pt to discharge to [facility] at 5:30 via cot/Ambulance through [facility] [employer]
--- NOTE | 2018-03-05 17:22 | NURSING ---
report called to Conner Fan. informed that transport will come [id number]
== END 2018-03-05 18:40 | disposition skilled nursing facility (03) | DRG 209 ==
LOC: ED 01:58 → MS3 03:31
PROVIDERS: Orthopaedic Surgery; Specialist; Admitting Provider Family Medicine; Emergency Provider Emergency Medicine; Family Provider Internal Medicine; PCP Internal Medicine
PROC: 0SRC069 Replacement of Right Knee Joint with Oxidized Zirconium on Polyethylene Synthetic Substitute, Cemented, Open Approach (ICD-10-PCS; CPT 27488; principal; 2018-03-03 08:45)
DX: T84.53XA Infection and inflammatory reaction due to internal right knee prosthesis, initial encounter (principal); J44.9 Chronic obstructive pulmonary disease, unspecified; M00.9 Pyogenic arthritis, unspecified; B95.1 Streptococcus, group B, as the cause of diseases classified elsewhere; F02.80 Dementia in other diseases classified elsewhere, unspecified severity, without behavioral disturbance, psychotic disturbance, mood disturbance, and anxiety; E87.6 Hypokalemia; M19.90 Unspecified osteoarthritis, unspecified site; F32.9 Major depressive disorder, single episode, unspecified; I10 Essential (primary) hypertension; E78.5 Hyperlipidemia, unspecified; Z87.891 Personal history of nicotine dependence
CPT/HCPCS: 36415; 36569; 71045; 80048; 80053; 81001; 83605; 83735; 85025; 85027; 85652; 86140; 87015; 87040; 87070; 87075; 87077; 87102; 87116; 87186; 87205; 87206; 89050; 89051; 89060; 93005; 97110; 97116; 97162; 97166; 97530; 97535; 97802; 99251; 99285; J7030; J7040; J7120; A4216; G0463; J0696; J2405

== ENCOUNTER 2022-10-21 07:38 | Day surgery (SDC) | payer MEDICAID, SELFPAY ==
--- NOTE | 2022-10-21 07:52 | EKG12_ITS ---
Test Reason : PRE SURGERY Blood Pressure : / mmHG Vent. Rate : 049 BPM Atrial Rate : 049 BPM P-R Int : 134 ms QRS Dur : 086 ms QT Int : 452 ms P-R-T Axes : 018 -24 005 degrees QTc Int : 408 ms Sinus bradycardia Otherwise normal ECG Confirmed by TAYA GARCIA, ALCIDES ([id number]), restaurant expeditor TYSHAWN SCHMIDT ([id number]) on 10/23/2022 11:08:14 AM Referred By: Jitendra Tijerina Confirmed By:ALCIDES BAIN MD
[2022-10-21] MEDS: Lactated Ringers 1,000 ML 15 ML IV (08:32)
[2022-10-21 08:34] VITALS: BP 127/85; PULSE 46; RESP 18; TEMP 36.6; O2SAT 98; BMI 30.1
[2022-10-21 08:34] LABS: Hematocrit 43.6 % (40-54); Hemoglobin 14.3 g/dL (13.0-16.5); Mean Corp Hgb Conc 32.8 g/dL (32-36); Mean Corpuscular Hgb 29.2 pg (27.0-32.0); Mean Corpuscular Volume 89.2 fL (80-94); Mean Platelet Vol. 11.9 fl (6.2-12.0); Platelet Count 177 K/mm3 (150-450); RBC Distribution Width CV 13.6 % (11.6-14.6); RBC Distribution Width SD 44.4 fl (35.1-43.9); Red Blood Count 4.89 M/mm3 (4.6-6.2); White Blood Count 4.7 K/mm3 (4.4-11.0)
[2022-10-21 08:45] LABS: Anion Gap 5 (5-15); BUN 10 mg/dL (7-18); BUN/Creat Ratio 13.6 RATIO (10-20); Calcium,Total 8.9 mg/dL (8.5-10.1); Chloride 110 mmol/L (98-107); Creatinine, Serum 0.73 mg/dL (0.70-1.30); EST Glomerular Filtration Rate 115 mL/min (>60); Est Glom Filt Rate - Afr Amer 139 mL/min (>60); Glucose 115 mg/dL (74-106); Potassium 3.9 mmol/L (3.5-5.1); Sodium Level 144 mmol/L (136-145)
--- NOTE | 2022-10-21 08:58 | DS.PCM_ITS ---
Providers Primary Care Physician: Dr. Carla Oviedo MD Medications at Discharge Home Medications amlodipine 10 mg tablet 10 mg PO DAILY #30 tabs 03/19/17 atorvastatin 40 mg tablet 40 mg PO QHS 06/18/17 lisinopril 2.5 mg tablet 40 mg PO DAILY bp 06/18/17 furosemide 40 mg tablet (Lasix) 60 mg PO PRN PRN COPD 03/03/18 gabapentin 100 mg capsule (Neurontin) 300 mg PO TID pain 03/03/18 sennosides 8.6 mg tablet (Carole-lae) 8.6 mg PO QHS stool softener 03/03/18 acetaminophen 500 mg tablet 1,000 mg PO Q8 03/05/18 albuterol sulfate 2.5 mg/3 mL (0.083 %) solution for nebulization 2.5 mg inhalation Q4H PRN SOB 10/18/22 aspirin 81 mg tablet,delayed release 81 mg PO DAILY 10/18/22 cholecalciferol (vitamin D3) 50 mcg (2,000 unit) capsule (Vitamin D3) 50 mcg PO DAILY 10/18/22 fluticasone 500 mcg-salmeterol 50 mcg/dose blistr powdr for inhalation (Advair Diskus) 1 inh inhalation BID 10/18/22 fluticasone propionate 50 mcg/actuation nasal spray,suspension (Flonase Allergy Relief) 2 spray intranasal DAILY 10/18/22 lorazepam 0.5 mg tablet 0.5 mg PO TID 10/18/22 melatonin 10 mg tablet 10 mg PO QHS 10/18/22 memantine 10 mg tablet (Namenda) 10 mg PO BID 10/18/22 metformin 500 mg tablet 1,000 mg PO DAILY 10/18/22 oxycodone 5 mg tablet 10 mg PO TID 10/18/22 rivastigmine 13.3 mg/24 hour transdermal patch (Exelon Patch) 13.3 mg transdermal QHS 10/18/22 sertraline 100 mg tablet (Zoloft) 100 mg PO DAILY 10/18/22 tamsulosin 0.4 mg capsule 0.4 mg PO QHS 10/18/22 tizanidine 4 mg tablet 4 mg PO DAILY 10/18/22 Weight / BMI Weight Weight: 82.1 kg Body Mass Index (BMI) 30.1 ABG / Lab / Microbiology Data Result Diagrams: 10/21/22 08:15 10/21/22 08:15 Laboratory: Laboratory Results - last 24 hr 10/21/22 08:15: WBC 4.7, RBC 4.89, Hgb 14.3, Hct 43.6, MCV 89.2, MCH 29.2, MCHC 32.8, RDW Std Deviation 44.4 H, RDW Coeff of Amee 13.6, Plt Count 177, MPV 11.9 10/21/22 08:15: Sodium 144, Potassium 3.9, Chloride 110 H, Carbon Dioxide 29.0, Anion Gap 5, BUN 10, Creatinine 0.73, Estim Creat Clear Calc 90.10, Est GFR (MDRD) Af Amer 139, Est GFR (MDRD) Non-Af 115, BUN/Creatinine Ratio 13.6, Glucose 115 H, Calcium 8.9 D/C Instructions Discharge Diet: No restrictions Discharge Activity: Return to Normal Activity Additional Activity Instructions: remove dressing and discard tomorrow morning. Change cotton ball as needed. No water in the ear!! Please Follow Up With: Jitendra Tijerina MD When: 3 weeks Meaningful Use Info Meaningful Use Diagnoses (Choose all that apply): None applicable Discharge Plan Admission Attending Provider: Jitendra Tijerina Primary Care Provider: Carla Oviedo Discharge Orders/Prescriptions Prescriptions: No Action amlodipine 10 MG tablet 10 mg PO DAILY Qty: 30 0RF Label Comments: BP atorvastatin 40 MG tablet 40 mg PO QHS Label Comments: CHOLESTEROL lisinopril 2.5 MG tablet 40 mg PO DAILY Label Comments: BP gabapentin [Neurontin] 100 MG capsule 300 mg PO TID sennosides [Carole-lea] 1 TABLET tablet 8.6 mg PO QHS furosemide [Lasix] 40 MG tablet 60 mg PO PRN PRN (Reason: COPD) acetaminophen 500 MG tablet 1,000 mg PO Q8 0RF metformin 500 mg Tablet 1,000 mg PO DAILY albuterol sulfate 2.5 mg /3 mL (0.083 %) Solution For Nebulization 2.5 mg INHALATION Q4H PRN (Reason: SOB) tizanidine 4 mg Tablet 4 mg PO DAILY sertraline [Zoloft] 100 mg Tablet 100 mg PO DAILY aspirin [Aspir-81] 81 mg Tablet,Delayed Release (Dr/Ec) 81 mg PO DAILY lorazepam 0.5 mg Tablet 0.5 mg PO TID tamsulosin 0.4 mg Capsule 0.4 mg PO QHS fluticasone propion-salmeterol [Advair Diskus] 500-50 mcg/dose Blister With Device 1 inh INHALATION BID fluticasone propionate [Flonase Allergy Relief] 50 mcg/actuation Reading,Suspension 2 spray INTRANASAL DAILY Rx Instructions: administer into each nostril memantine [Namenda] 10 mg Tablet 10 mg PO BID cholecalciferol (vitamin D3) [Vitamin D3] 50 mcg (2,000 unit) Capsule 50 mcg PO DAILY melatonin 10 mg Tablet 10 mg PO QHS rivastigmine [Exelon Patch] 13.3 mg/24 hour Patch 24 Hour 13.3 mg TRANSDERMAL QHS oxycodone 5 MG tablet 10 mg PO TID Referrals / Follow Up: Carla Oviedo MD [Primary Care Provider] - Disposition Disposition (needs filled in before D/C Order can be placed): Home, Self Care
[2022-10-21 09:00] LABS: Bedside Glucose 117 mg/dL (74-106)
[2022-10-21 09:11] LABS: Hemoglobin A1c 6.2 % (3.8-5.6)
[2022-10-21] MEDS: Lidocaine 2% /Epi 1:100 (20ml) 20 ML VIAL (09:21)
[2022-10-21] MEDS: Epinephrine (1 mg/ml) 1 MG/ML VIAL (09:21)
[2022-10-21] MEDS: Ciprofloxacin 0.3% 2.5ml Bottle 1 DRP (09:21)
[2022-10-21] MEDS: BACITRACIN/POLYMYXIN B 15 GM Tube 1 APPLIC (09:21)
--- NOTE | 2022-10-21 10:21 | OP.PCM_ITS ---
Report of Operation Date of Procedure: 10/21/22 Pre-Operative Diagnosis: right tympanic membrane perforation Post-Operative Diagnosis: same Surgery/Procedure Performed:: Right tympanoplasty harvest of tragal cartilage Surgeon: Jitendra Tijerina Type of Anesthesia: General Anesthesiologist: Dago Brown Estimated Blood Loss (mL): minimal Description of Procedure: Patient was taken to the operating room on 10/21/2022. He was placed in supine position on the operating table. He was given sufficient general endotracheal anesthesia. The table was turned 90 degrees in a counterclockwise fashion. The right ear was prepped and draped sterilely. 1% lidocaine with epinephrine was injected into the tragus and meatus. Next a speculum was inserted patient's right external auditory canal and the external auditory canal skin was injected with 1% lidocaine with epinephrine. I rimmed the perforation with a Poe pick. The rim was removed with a cup forceps. Adrenaline Gelf[place]am was used for hemostasis. Next I made an incision at the edge of the tragal cartilage with a 15 blade. A plane was established sharply on both the medial and lateral as pects of the tragal cartilage. The tragal cartilage was then harvested sharply with scissors. I then irrigated the tragal harvest site with saline. Hemostasis was achieved with bipolar cautery. The incision was then closed with interrupted 5-0 fast-absorbing gut. I placed a quilting suture to close the space as well. Next a speculum was owens was used. I measured the perforation. Perforation was 4 x 4 mm. The tragal cartilage was cut to 6 x 6 mm. The tragal cartilage was butterflied with a straight [place] blade circumferentially around the cartilage. I then placed the cartilage graft into the perforation with 1 lip of the cartilage medial to the perforation and 1 lip lateral to the perforation. This was tucked circumferentially with a gimmick. The perichondrium was then smoothed over the rest of the inferior tympanic membrane. The external auditory canal was filled with antibiotic ointment. A [place] dressing was then applied. The patient then awoken about the recovery room in stable condition. Blood loss minimal,replacement none,sponge needle and instrument counts correct were correct at the end of the procedure.
[2022-10-21 10:31] VITALS: BP 121/74; BP 127/85; PULSE 78; RESP 18; TEMP 36.3; O2SAT 99
[2022-10-21 10:45] VITALS: BP 113/65; BP 127/85; PULSE 69; RESP 16; O2SAT 94
[2022-10-21 11:00] VITALS: BP 120/70; BP 127/85; PULSE 57; RESP 16; O2SAT 93
[2022-10-21 11:10] VITALS: BP 119/69; BP 127/85; PULSE 56; RESP 16; TEMP 36.3; O2SAT 93
[2022-10-21 12:10] VITALS: BP 127/74; BP 127/85; PULSE 58; RESP 16; TEMP 36.3; O2SAT 92
== END 2022-10-21 12:21 | disposition home or self-care (01) ==
LOC: SDC 07:39 → AC 07:42
PROVIDERS: PCP Internal Medicine; Referring Provider Otolaryngology; Visit Provider Otolaryngology
PROC: (CPT 69610; principal; 2022-10-21 08:40)
DX: H72.01 Central perforation of tympanic membrane, right ear (principal); I10 Essential (primary) hypertension; Z86.73 Personal history of transient ischemic attack (TIA), and cerebral infarction without residual deficits; H91.90 Unspecified hearing loss, unspecified ear; J98.4 Other disorders of lung; R00.1 Bradycardia, unspecified; Z79.899 Other long term (current) drug therapy
CPT/HCPCS: 69610; 80048; 82962; 83036; 85027; 93005; J7120; J2405